=== PATIENT | female | born 1965 | race Caucasian/White ===

== ENCOUNTER → 2017-10-14 | Outpatient (CLI) | payer BC ==
--- NOTE | 2017-10-14 16:38 | XR ---
Right shoulder HISTORY: Chronic right shoulder pain 3 views of the right shoulder Bone mineralization, joint spaces and alignment are maintained. No fracture or dislocation. Right pedrito g apex as visualized is normal. Distal acromion is downturned. IMPRESSION: Correlate for possible impingement, shoulder MRI may be of benefit.
== END | disposition home or self-care (01) ==
LOC: RADXRYALE 14:11
PROVIDERS: ATTEND Physician Assistant Medical
DX: M25.511 Pain in right shoulder (principal)

== ENCOUNTER → 2018-01-06 | Outpatient (CLI) | payer BC ==
--- NOTE | 2018-01-06 09:40 | US ---
EXAMINATION TYPE: US pelvis complete transvag DATE OF EXAM: 01/06/2018 COMPARISON: NONE CLINICAL HISTORY: N92.0 Menorrhagia. Right side pain. Patient said she skipped her menses in November w hich is unusual for her. TECHNIQUE: Transvaginal (TV) and Transabdominal (TA) . Transabdominal sonographic images of the pel vis were acquired. Transvaginal sonographic images were medically necessary to better assess the fol lowing anatomy: Ovaries and endometrium Date of LMP: 11/14/2017, EXAM MEASUREMENTS: Uterus: 8.4 x 4.7 x 3.7 cm Endometrial Stripe: 0.5 cm Right Ovary: 1.9 x 1.2 x 1.4 cm 1. Uterus: Anteverted 2. Endometrium: wnl as visualized 3. Right Ovary: appears small in size 4. Left Ovary: Obscured by overlying bowel gas 5. Bilateral Adnexa: wnl 6. Posterior cul-de-sac: wnl Cervix- nabothian cyst IMPRESSION: Uterus, endometrial thickness, and right ovary are grossly unremarkable other than slight small size of the right ovary. Left ovary is nonvisualized due to overlying bowel gas.
== END | disposition home or self-care (01) ==
LOC: RADUSWWP 08:17
PROVIDERS: ATTEND Obstetrics & Gynecology
DX: N92.0 Excessive and frequent menstruation with regular cycle (principal)
CPT/HCPCS: 76830; 76856

== ENCOUNTER → 2018-06-18 | Outpatient (CLI) | payer OTHER ==
--- NOTE | 2018-06-18 11:53 | MM ---
Reason for exam: screening (asymptomatic). Last mammogram was performed 4 years and 6 months ago. Physical Findings: A clinical breast exam by your physician is recommended on an annual basis and results should be correlated with mammographic findings. MG Screening Mammo w CAD Bilateral CC and MLO view(s) were taken. Prior study comparison: December 26, 2013, bilateral digital screening mammo w/CAD. There are scattered fibroglandular densities. Stable benign calcifications. There is no discrete abnormality. No significant changes when compared with prior studies. ASSESSMENT: Benign, BI-RAD 2 RECOMMENDATION: Routine screening mammogram of both breasts in 1 year.
== END | disposition home or self-care (01) ==
LOC: RADMAMWWP 07:02
PROVIDERS: ATTEND Family Medicine
DX: Z12.31 Encounter for screening mammogram for malignant neoplasm of breast (principal)
CPT/HCPCS: 77067

== ENCOUNTER → 2020-08-09 | Outpatient (CLI) | payer OTHER ==
--- NOTE | 2020-08-09 10:25 | XR ---
EXAMINATION TYPE: XR knee complete LT DATE OF EXAM: 08/09/2020 COMPARISON: NONE HISTORY: Pain TECHNIQUE: Three views are submitted. FINDINGS: Mild to moderate narrowing of the medial compartment of the knee joint. Hypertrophic spurring involvi ng the upper margin of the patella.. Osseous structures are intact. No acute fracture seen. IMPRESSION: 1. Arthropathy
== END | disposition home or self-care (01) ==
LOC: RADXRMAIN 08:00
PROVIDERS: ATTEND Family Medicine
DX: M12.862 Other specific arthropathies, not elsewhere classified, left knee (principal)

== ENCOUNTER → 2021-08-20 | Outpatient (CLI) | payer OTHER ==
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
== END | disposition home or self-care (01) ==
LOC: RADXRMAIN 09:58
PROVIDERS: ATTEND Emergency Medicine
DX: S40.011A Contusion of right shoulder, initial encounter (principal); S40.021A Contusion of right upper arm, initial encounter; X58.XXXA Exposure to other specified factors, initial encounter

== ENCOUNTER → 2021-09-27 | Outpatient (CLI) | payer OTHER ==
--- NOTE | 2021-09-28 04:06 | MR ---
EXAMINATION TYPE: MR shoulder RT wo con DATE OF EXAM: 09/27/2021 COMPARISON: None HISTORY: Right shoulder pain/injury. Multiplanar multiecho imaging of the right shoulder without contrast. There is a large shoulder joint effusion. There is subdeltoid effusion. There is spurring at the AC j oint with subacromial impingement. There is severe subacromial joint space narrowing. There is retrac tion of the supraspinatus tendon. There is large defect over the superior aspect of the humeral head. Subscapularis tendon shows some mild thickening. Biceps tendon is intact. The glenoid cleve appear in tact. There is no evidence of bony destructive process. There is no evidence for fracture. IMPRESSION: Large rotator cuff tear with retraction of the supraspinatus tendon. Moderate-sized shoulder joint effusion and subdeltoid effusion. Severe subacromial joint space narrow ing and impingement.
== END | disposition home or self-care (01) ==
LOC: RADMRIMAIN 20:44
PROVIDERS: ATTEND Orthopaedic Surgery
DX: M25.411 Effusion, right shoulder (principal)

== ENCOUNTER 2021-11-01 06:01 | Day surgery (SDC) | payer OTHER ==
[2021-10-30 15:08] VITALS: BMI 29.5
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
[2021-11-01] MEDS ORDERED: DEXAMETHASONE SOD PHOSPHATE 4 MG/ML 1 ML VIAL IV ONE (06:11)
[2021-11-01] MEDS ORDERED: ONDANSETRON 4 MG/2 ML VIAL IVP ONE (06:11)
[2021-11-01] MEDS ORDERED: MIDAZOLAM 2 MG/2 ML VIAL IV PRN (06:11)
[2021-11-01] MEDS ORDERED: SCOPOLAMINE 1.5MG/72HR PATCH TRANSDERM ONE (06:11)
[2021-11-01] MEDS ORDERED: LACTATED RINGERS 1,000 ML IV SCH (06:11)
[2021-11-01] MEDS ORDERED: HYDROmorphone 0.5 MG/0.5 ML SYRINGE IVP PRN (07:00)
[2021-11-01] MEDS ORDERED: fentaNYL (PF) 50 MCG/ML 2 ML AMP IVP ONE ×2 (07:17)
[2021-11-01] MEDS ORDERED: MIDAZOLAM 2 MG/2 ML VIAL IVP ONE (07:17)
[2021-11-01] MEDS ORDERED: PHENYLEPHRINE-0.9% NACL SYG 1,000 MCG/10 ML SYRINGE ONE (07:44)
[2021-11-01] MEDS ORDERED: PROPOFOL 10 MG/ML 20 ML VIAL IV ONE (07:44)
[2021-11-01] MEDS ORDERED: LIDOCAINE 1% INJ 10MG/ML (20 ML MDV) ONE (07:44)
[2021-11-01] MEDS ORDERED: ROPIVACAINE 5 MG/ML 30 ML VIAL ONE (07:44)
[2021-11-01] MEDS ORDERED: MIDAZOLAM 2 MG/2 ML VIAL ONE (07:44)
[2021-11-01] MEDS ORDERED: fentaNYL (PF) 50 MCG/ML 2 ML AMP ONE (07:44)
[2021-11-01] MEDS ORDERED: SUCCINYLCHOLINE CHLORIDE 100 MG/5 ML SYR IV ONE (07:44)
[2021-11-01] MEDS ORDERED: ePHEDrine 50 MG/ML 1 ML VIAL ONE (07:44)
[2021-11-01] MEDS ORDERED: LACTATED RINGERS 1,000 ML IV ONE (08:38)
--- NOTE | 2021-11-01 08:39 | P.ANPRN ---
Procedure Note - Anesthesia - Nerve Block Performed Right Interscalene Time Out Performed: Yes (07:16) Date of Procedure: 11/01/21 Procedure Start Time: Procedure Stop Time: Location of Patient: PreOp Indication: Acute Post-Operative Pain, Requested by Surgeon (Dr Campoverde) Sedation Type: Sedate with meaningful contact maintained Preparation: Sterile Prep Position: Supine Catheter: None Needle Types: Pajunk Needle Gauge: Other (see comment) (22g) Ultrasound used to visualize needle placement: Yes Ultrasound used to observe medication spread: Yes Injectate: 0.5% Ropivacaine (see comment for volume) (20cc) Blood Aspirated: No Pain Paresthesia on Injection Noted: No Resistance on Injection: Normal Image Stored and Saved: Yes Events: Uneventful and Well Tolerated
--- NOTE | 2021-11-01 09:12 | P.OP ---
Date of Procedure: 11/01/21 Preoperative Diagnosis: Symptomatic right rotator cuff tear Postoperative Diagnosis: 5 cm retracted rotator cuff tear/high-grade partial-thickness tear intra- articular portion long head of the biceps Procedure(s) Performed: Right shoulder arthroscopic subacromial decompression/rotator cuff repair/biceps tenotomy Implants: Arthrex 4.75 mm swivel lock anchor 2, 5.5 mm swivel lock anchor 2 Anesthesia: HEYDIA, tyrell Surgeon: Anjel Campoverde Outbound Supervisor #1: Cullen Pederson Estimated Blood Loss (ml): 10 Pathology: none sent Condition: stable Disposition: PACU Indications for Procedure: The patient's a 56-year-old female presents with right shoulder pain after an injury at work. Upon evaluation she is noted have symptomatic acute rotator cuff tear. A discussion of the risks and benefits of operative intervention versus conservative measures was made with patient. She opted to proceed. Operative risks to include infection, neurovascular injury, development of blood clots, possible tendon rerupture, possible postoperative stiffness and need for subsequent procedures was discussed. Informed consent was obtained. Operative Findings: As below Description of Procedure: The patient was brought to the operating room, and after induction of general anesthesia was placed in a beachchair position. A preoperative interscalene block was placed for postoperative analgesia. I examined the right shoulder. There was no gross block to passive motion or gross glenohumeral instability. The right upper extremity was prepped and draped in normal fashion. The bony outlines the acromion, distal clavicle, and coracoid process were outlined with a skin marker. The glenohumeral joint was inflated with 50 mL of saline utilizing a spinal needle from posterior approach. A posterior portal was made through a 5 mm skin incision 1 cm medial and inferior to the posterior lateral border time. A blunt trocar was used to easily into the joint. Diagnostic arthroscopy was performed. An anterior portal was made just lateral to the coracoid process entering the joint above the subscapularis tendon. The subscapularis tendon appeared to be intact. Anterior labrum was intact. The inferior recess was inspected. The posterior labrum was intact. There was a high-grade partial-thickness tear of the long head of the biceps involving interarticular portion. I elected to proceed with release at this point. This was released from the superior labrum with electrocautery and was allowed to retract to the bicipital groove. On inspection the rotator cuff, a large 5 cm tear was noted involving the supraspinatus and infraspinatus with retraction. The arthroscope was placed into the subacromial space. A lateral portal was made 2 centimeters inferior to the anterior lateral border of the acromion. The rotator cuff was then mobilized with a traction suture. This was then easily brought back to the greater tuberosity. The soft tissue on the undersurface of the acromion was debrided with a motorized shaver and electrocautery clearly defining the anterior medial and lateral borders as well as the distal clavicle. An anterior inferior acromioplasty was performed with a motorized ehsan starting anterolateral, then extending this posteriorly, then extending this medially. I converted to a flat acromion and this was verified in the posterior and lateral viewing portals. The greater tuberosity was lightly decorticating with a shaver down to a bleeding bony surface. An accessory superior lateral portal was made just off the lateral edge of the acromion for anchor placement. 2 anchors were then placed just off the articular surface with the appropriate starting awl. 4.75 mm anchors preloaded with #2 fiber tape were placed. Good purchase was obtained. These fiber tapes were then passed the rotator cuff with a scorpion suture passer. An additional fiber link was placed anteriorly. A lateral row was created crisscrossing these tapes. 5.5 mm swivel lock anchors x2 were placed laterally. Good purchase was obtained. Final arthroscopic view showed adequate compression at the footprint. The arthroscope was then removed. The portals were closed with simple 3-0 nylon sutures. A sterile dressing was applied in addition to an abductor brace. The patient was then awoken from general anesthesia and transferred to recovery room in good condition. Blood loss was estimated at 10 mL. No complications were incurred. Sponge and needle counts were correct in the case. Gio MOY assisted and the major components of the case to include arm positioning, anchor placement, and rotator cuff repair.
[2021-11-01 09:21] VITALS: TEMP 97
[2021-11-01 09:49] VITALS: RESP 18
[2021-11-01] MEDS ORDERED: HYDROcodone/APAP 7.5-325MG 1 EACH TAB ONE (10:09)
[2021-11-01] MEDS ORDERED: HYDROcodone/APAP 7.5-325MG 1 EACH TAB PO ONE (10:16)
[2021-11-01 10:29] VITALS: BP 121/78; PULSE 99
== END 2021-11-01 11:10 | disposition home or self-care (01) ==
LOC: OR 06:01
PROVIDERS: ATTEND Orthopaedic Surgery
DX: M75.101 Unspecified rotator cuff tear or rupture of right shoulder, not specified as traumatic (principal)
CPT/HCPCS: 29822; 64415; 76942; C1713 ×3; J2250; J1100; J0690; J2405; J2001; J3010; J2795; J2370; J0330; J2704; J1170

== ENCOUNTER → 2022-03-26 | Outpatient (CLI) | payer OTHER ==
--- NOTE | 2022-03-27 03:56 | MR ---
EXAMINATION TYPE: MR shoulder RT wo con DATE OF EXAM: 03/26/2022 COMPARISON: 09/27/2021 HISTORY: Prior on synapse, s/p surgical repair 11/01/2021, continuing pain and limited ROM Multiplanar multiecho imaging of the right shoulder with no contrast. There are 3 screws in the humeral head apparently for rotator cuff repair. There is some thickening a nd increased signal in the supraspinatus tendon near the attachment on the greater tuberosity of the humerus. No retraction. The biceps tendon is intact. Subscapularis tendon is intact. The glenoid labr a appear intact. The infraspinatus tendon is intact. There is mild spurring at the AC joint and subacromial impingement on the supraspinatus tendon. There is increased fluid signal at the AC joint. The humeral head is intact. Scapula is intact. IMPRESSION: There is rotator cuff repair surgery. There is some thickening and increased signal in the supraspina tus tendon near the attachment on the greater tuberosity and consistent with multiple full-thickness tears and tendinitis. No retraction. There is moderate subacromial impingement due to spurring at the AC joint. Impingement increased compared to preoperative exam. Impingement increased due to restorat ion of the supraspinatus tendon in the subacromial joint space. Mild shoulder joint effusion.
== END | disposition home or self-care (01) ==
LOC: RADMRIMAIN 10:58
PROVIDERS: ATTEND Orthopaedic Surgery
DX: M25.511 Pain in right shoulder (principal)

== ENCOUNTER 2022-05-20 08:51 | Day surgery (SDC) | payer OTHER ==
[2022-05-16 16:02] VITALS: BMI 31.1
--- NOTE | 2022-05-19 08:58 | P.HPOR ---
History of Present Illness H&P Date: 05/19/22 Chief Complaint: Right shoulder pain and stiffness The patient is a 57-year-old ulhqv-mhpw-kedydysk female who presents after undergoing right shoulder arthroscopic rotator cuff repair in October 2021 with persistent pain and stiffness. She's tried rehabilitation and other co nservative modalities. Review of Systems As per HPI Past Medical History Past Medical History: No Reported History Additional Past Medical History / Comment(s): RT SHOULDER INJURY History of Any Multi-Drug Resistant Organisms: None Reported Past Surgical History: Orthopedic Surgery, Tubal Ligation Additional Past Surgical History / Comment(s): RIGHT SHOULDER SURG. Past Anesthesia/Blood Transfusion Reactions: No Reported Reaction Past Psychological History: No Psychological Hx Reported Smoking Status: Never smoker Past Alcohol Use History: Occasional Past Drug Use History: None Reported - Past Family History Mother Family Medical History: Unable to Obtain Additional Family Medical History / Comment(s): PT ADOPTED Medications and Allergies Home Medications Medication Instructions Recorded Confirmed Type No Known Home Medications 05/16/22 05/16/22 History Allergies Allergy/AdvReac Type Severity Reaction Status Date / Time No Known Allergies Allergy Verified 05/16/22 15:58 Physical Examination - Shoulder right Appearance: previous incision (Healed portals) Tenderness with palpation: anterior Pain: with forward flexion ROM: forward flexion: 120 degrees ROM: internal rotation: mid lumbar ROM: external rotation: 50 degrees Strength: abduction: 5/5 Strength: forward flexion: 5/5 Tests: internal impingement tests: positive Results The patient is a well-developed well-nourished female proximal a 5 foot 3, 160 pounds of endomorphic habitus. HEENT exam is nonfocal. Neck is supple. Her distal neurovascular appears intact in the right upper shoulder. - Diagnostic results Shoulder MRI: image reviewed (Right shoulder MRI 03/26/2022 shows increased signal involving the supraspinatus attachment. No definite full-thickness rotator cuff tear is noted.) Assessment and Plan Assessment: Status post right shoulder arthroscopic subacromial decompression/rotator cuff repair Right shoulder adhesive capsulitis Plan: I talked to the patient length regarding her condition and treatment options. This point she remains stiff and painful despite adequate rehabilitation postoperatively. After thorough discussion she has proceed with manipulation under anesthesia. Likely we will perform that as an outpatient procedure. Risks and benefits were discussed at length in layman's terms. Time with Patient: Less than 30
[~2022-05-20 08:51] MED LIST: LACTATED RINGERS 1,000 ML IV SCH
[2022-05-20 09:17] VITALS: TEMP 97.8
[2022-05-20] MEDS ORDERED: LIDOCAINE 1% (10MG/ML) FOR IV START INTRADERMA ONE (09:25)
[2022-05-20] MEDS ORDERED: ONDANSETRON 4 MG/2 ML VIAL ONE (09:34)
[2022-05-20] MEDS ORDERED: ONDANSETRON 4 MG/2 ML VIAL IVP ONE (09:37)
[2022-05-20] MEDS ORDERED: MIDAZOLAM 2 MG/2 ML VIAL ONE (10:21)
[2022-05-20] MEDS ORDERED: PROPOFOL 10 MG/ML 20 ML VIAL IV ONE (10:21)
[2022-05-20] MEDS ORDERED: LIDOCAINE 2% INJ 20 MG/ML (2 ML VIAL) ONE (10:21)
[2022-05-20] MEDS ORDERED: fentaNYL (PF) 50 MCG/ML 2 ML AMP ONE (10:21)
--- NOTE | 2022-05-20 10:30 | P.OP ---
Date of Procedure: 05/20/22 Preoperative Diagnosis: Right shoulder adhesive capsulitis Postoperative Diagnosis: Same Procedure(s) Performed: Manipulation under anesthesia right shoulder Anesthesia: MAC Surgeon: Anjel Campoverde Estimated Blood Loss (ml): 0 Pathology: none sent Condition: stable Disposition: PACU Indications for Procedure: The patient is a 57-year-old female who previously underwent right shoulder arthroscopic rotator cuff repair who presents with persistent stiffness and pain despite adequate rehabilitation. A discussion of the risks and benefits of manipulation under anesthesia was made with patient. She opted to proceed. Specific risks of this procedure to include fracture, tendon rupture, possible recurrence of stiffness and need for subsequent procedures was discussed. Informed consent was obtained. Operative Findings: As below Description of Procedure: Patient was brought to recovery room, and after induction of IV sedation I gently manipulated the right shoulder first with the arm at side obtaining full external rotation. Moderate adhesions were encountered. I then obtained full forward elevation. Again moderate adhesions were encountered. I felt there was adequate release this point. The patient was then monitored until fully awake. No complications were incurred. There was no blood loss.
[2022-05-20] MEDS ORDERED: HYDROmorphone 0.5 MG/0.5 ML SYRINGE IVP ONE (10:46)
[2022-05-20 11:14] VITALS: RESP 16
[2022-05-20] MEDS ORDERED: HYDROcodone/APAP 5-325MG 1 EACH TAB ONE (11:39)
[2022-05-20] MEDS ORDERED: HYDROcodone/APAP 5-325MG 1 EACH TAB PO ONE (11:40)
[2022-05-20 11:49] VITALS: BP 145/79; PULSE 66
== END 2022-05-20 12:10 | disposition home or self-care (01) ==
LOC: OR 08:51
PROVIDERS: ATTEND Orthopaedic Surgery
DX: M75.01 Adhesive capsulitis of right shoulder (principal); Z98.51 Tubal ligation status; Z47.31 Aftercare following explantation of shoulder joint prosthesis; Z98.890 Other specified postprocedural states; Z86.59 Personal history of other mental and behavioral disorders
CPT/HCPCS: 23700; J2250; J2405; J3010; J2704; J1170; J2001

== ENCOUNTER → 2023-01-28 | Outpatient (CLI) | payer OTHER ==
--- NOTE | 2023-01-28 10:36 | CT ---
EXAMINATION TYPE: CT pelvis wo con DATE OF EXAM: 01/28/2023 COMPARISON: None. HISTORY: Symphysis pubis pain, groin pain CT DLP: 472.1 mGycm Automated exposure control for dose reduction was used. FINDINGS: There is some narrowing with sclerosis and subchondral cystic change at the pubic symphysis, latter f indings are more prominent on the right. Mild axial joint space loss and acetabular spurring of both hips is fairly symmetric in appearance. S acroiliac joints are symmetric and within normal limits. There is transitional-type vertebra at the l umbosacral junction. There is mild to moderate disc space narrowing L4-L5 and L5-S1 levels. Minimal g rade 1 anterolisthesis of L5 on L6. Sigmoid colonic diverticula. No CT evidence for acute diverticulitis. Normal-appearing appendix is se en. Anteverted uterus is noted. Scattered small pelvic phleboliths. No free fluid in pelvis. No groin hernia or adenopathy seen. Muscle bulk bilateral thigh symmetric and within normal limits. 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
--- NOTE | 2023-01-29 10:04 | MM ---
Reason for Exam: Screening (asymptomatic). Last mammogram was performed 4 year(s) and 7 month(s) ago. Patient History: Menarche at age 17. First Full-Term at age 23. Postmenopausal. Patient has history of breast feeding. Patient used Hormonal Contraceptives for 3 years. Risk Values: Karina 5 year model risk: 1.0%. NCI Lifetime model risk: 6.7%. Prior Study Comparison: 12/26/2013 Bilateral Screening Mammogram, [facility]. 06/18/2018 Bilateral Screening Mammogram, [facility]. Tissue Density: There are scattered fibroglandular densities. Findings: Analyzed By CAD. Benign oil cyst calcifications on the right. There is no suspicious group of microcalcifications or new suspicious mass in either breast. Overall Assessment: Benign, BI-RAD 2 Management: Screening Mammogram of both breasts in 1 year. . Patient should continue monthly self-breast exams. A clinical breast exam by your physician is recommended on an annual basis. This exam should not preclude additional follow-up of suspicious palpable abnormalities. Note on Karina scores and lifetime risk: 1. A Karina score greater than 3% is considered moderate risk. If this is the case, consider specialist referral to assess eligibility for a risk reducing agent. 2. If overall lifetime risk for the development of breast cancer is 20% or higher, the patient may qualify for future screening with alternating mammogram and breast MRI. Electronically signed and approved by: Julia Esparza M.D. Radiologist
== END | disposition home or self-care (01) ==
LOC: RADMAMWWP 08:23
PROVIDERS: ATTEND Family Medicine
DX: Z12.31 Encounter for screening mammogram for malignant neoplasm of breast (principal); S33.4XXS Traumatic rupture of symphysis pubis, sequela; M16.11 Unilateral primary osteoarthritis, right hip; M48.07 Spinal stenosis, lumbosacral region; X58.XXXS Exposure to other specified factors, sequela; Z78.0 Asymptomatic menopausal state
CPT/HCPCS: 72192; 77067

== ENCOUNTER 2023-02-02 05:51 | Emergency (ER) | payer OTHER ==
[2023-02-02 06:00] VITALS: RESP 18; TEMP 97.7
[2023-02-02] MEDS ORDERED: SODIUM CHLORIDE 0.9% 1,000 ML IV STA (06:49)
--- NOTE | 2023-02-02 06:54 | ED ---
Extremity Problem HPI - General Chief complaint: Extremity Problem,Nontraumatic Stated complaint: Tingling in legs, Muscle Cramps in legs and back Time Seen by Provider: 02/02/23 06:35 Source: patient, RN notes reviewed Mode of arrival: ambulatory Limitations: no limitations - History of Present Illness Initial comments: This is a 57-year-old female who presents to the emergency department for cramping and spasms in the bilateral lower extremities. States that this started 3 weeks ago after getting a cortisone injection in the left knee. Prior to 3 weeks ago, she had never had problems like this. She feels like it is getting worse, especially within the last week. She has started to notice visible movement in her calves, worse on the left side. States that she has tried to remain well-hydrated. She is going on vacation tomorrow and wants to make sure nothing serious is going on. Denies any chest pain or shortness of breath. Denies any fevers, chills, sore throat, cough, dyspnea, chest pain, palpitations, abdominal pain, nausea, vomiting, diarrhea, back pain, or headaches. MD Complaint: extremity pain Location: bilateral lower extremity History of Same: No - Related Data Previous Rx's Medication Instructions Recorded HYDROcodone/APAP 5-325MG [[place] 1 tab PO Q6HR PRN #21 tab 05/20/22 5-325] methylPREDNISolone Dose Pack 4 mg PO DIRECTED #21 tab 05/20/22 [Medrol Dose Pack] RX: diazePAM [Valium] 5 mg PO TID PRN 3 Days #9 tab 02/02/23 Allergies Allergy/AdvReac Type Severity Reaction Status Date / Time No Known Allergies Allergy Verified 02/02/23 05:55 Review of Systems ROS Statement: Those systems with pertinent positive or pertinent negative responses have been documented in the HPI. ROS Other: All systems not noted in ROS Statement are negative. Past Medical History Past Medical History: No Reported History Additional Past Medical History / Comment(s): RT SHOULDER INJURY History of Any Multi-Drug Resistant Organisms: None Reported Past Surgical History: Orthopedic Surgery, Tubal Ligation Additional Past Surgical History / Comment(s): RIGHT SHOULDER SURG. Past Anesthesia/Blood Transfusion Reactions: No Reported Reaction Past Psychological History: No Psychological Hx Reported Smoking Status: Never smoker Past Alcohol Use History: Occasional Past Drug Use History: None Reported - Past Family History Mother Family Medical History: Unable to Obtain Additional Family Medical History / Comment(s): PT ADOPTED General Exam Limitations: no limitations General appearance: alert, in no apparent distress Head exam: Present: atraumatic, normocephalic, normal inspection Respiratory exam: Present: normal lung sounds bilaterally. Absent: respiratory distress, wheezes, rales, rhonchi, stridor Cardiovascular Exam: Present: regular rate, normal rhythm, normal heart sounds. Absent: systolic murmur, diastolic murmur, rubs, gallop, clicks Extremities exam: Present: other (Visible muscle fasiculations in the calves bilaterally. 2+DP and TP pulses. Capillary refill <1 second.). Absent: calf tenderness Neurological exam: Present: alert, oriented X3, CN II-XII intact Psychiatric exam: Present: normal affect, normal mood Skin exam: Present: warm, dry, intact, normal color. Absent: rash Course Vital Signs 02/02/23 02/02/23 02/02/23 05:55 06:50 09:08 Temperature 97.7 F Pulse Rate 125 H 91 80 Respiratory 18 18 18 Rate Blood Pressure 167/97 139/89 131/72 O2 Sat by Pulse 100 97 97 Oximetry Medical Decision Making - Medical Decision Making This is a 57-year-old female who presents to the emergency department for cramping in the bilateral lower extremities. Was pt. sent in by a medical professional or institution? @ -No Did you speak to anyone other than the patient for history? @ -No Did you review nursing and triage notes? @ -Yes, and I agree, it is accurate with regards to the patient's symptoms. Were old charts reviewed? @ -No Differential Diagnosis? @ -Differential Muscle Cramps/Spasms: Hypocalcemia, hypomagnesemia, DVT, neuropathy, dehydration, this is not meant to be an all-inclusive list. EKG interpreted by me (3pts min.)? @ -Not obtained X-rays interpreted by me (1pt min.)? @ -Not obtained CT interpreted by me (1pt min.)? @ -Not obtained U/S interpreted by me (1pt. min.)? @ -Not obtained What testing was considered but not performed? (CT, X-rays, U/S, labs)? Why? @ -None What meds were considered but not given? Why? @ -None Did you discuss the management of the patient with other professionals? @ -No Did you reconcile home meds? @ -No Was smoking cessation discussed for >3mins.? @ -No Was critical care preformed (if so, how long)? @ -No Were there social determinants of health that impacted care today? How? (Homel essness, low income, unemployed, alcoholism, drug addiction, transportation, low edu. Level, literacy, decrease access to med. care, halfway, rehab)? @ -No Was there de-escalation of care discussed even if they declined? (Discuss DNR or withdrawal of care, Hospice)? @ -No What co-morbidities impacted this encounter? (DM, HTN, Smoking, COPD, CAD, Cancer, CVA, Hep., AIDS, mental health diagnosis, sleep apnea, morbid obesity)? @ -None Was patient admitted / discharged? @ -Discharged. Patient had visible muscle fasiculations on examination. There was no erythema, swelling, or tenderness to suggest a vascular problem such as DVT. Lab work obtained and found to be nonactionable. Patient given IV fluids and valium for symptomatic management. She did have some improvement, however the spasms and cramping continued. Advised that there is not a clear cause for her symptoms. I offered to call her primary care provider, however she declined and said that she'll follow up with him in the office as scheduled today at 1 PM. Prescription for Valium provided with dosing instructions reviewed to further treat the muscle cramps/spasms. She was advised that this may be sedating and she should avoid driving or operating machinery when taking this. Undiagnosed new problem with uncertain prognosis? @ -None Drug Therapy requiring intensive monitoring for toxicity (Heparin, Nitro, Insulin, Cardizem)? @ -None Were any procedures done? @ -None Diagnosis/symptom? @ -Fasiculations of muscles Acute, or Chronic, or Acute on Chronic? @ -Acute Uncomplicated (without systemic symptoms) or Complicated (systemic symptoms)? @ -Uncomplicated Side effects of treatment? @ -None Exacerbation, Progression, or Severe Exacerbation] @ -Not applicable Poses a threat to life or bodily function? @ -No Return precautions reviewed in depth, the patient is instructed to return to the emergency department with any new, worsening, or concerning symptoms. Patient verbalized understanding. This case was discussed in detail with the attending ED physician, Dr. Ramey. Presentation, findings, and treatment plan discussed in detail as well. - Lab Data Result diagrams: 02/02/23 07:00 02/02/23 07:00 Lab Results 02/02/23 02/02/23 02/02/23 Range/Units 07:00 07:00 07:00 WBC 9.1 (3.8-10.6) k/uL RBC 4.52 (3.80-5.40) m/uL Hgb 14.3 (11.4-16.0) gm/dL Hct 42.0 (34.0-46.0) % MCV 92.9 (80.0-100.0) fL MCH 31.6 (25.0-35.0) pg MCHC 34.0 (31.0-37.0) g/dL RDW 12.4 (11.5-15.5) % Plt Count 287 (150-450) k/uL MPV 7.2 Neutrophils % 76 % Lymphocytes % 16 % Monocytes % 5 % Eosinophils % 2 % Basophils % 0 % Neutrophils # 6.9 (1.3-7.7) k/uL Lymphocytes # 1.4 (1.0-4.8) k/uL Monocytes # 0.4 (0-1.0) k/uL Eosinophils # 0.1 (0-0.7) k/uL Basophils # 0.0 (0-0.2) k/uL Sodium 141 (137-145) mmol/L Potassium 4.1 (3.5-5.1) mmol/L Chloride 106 (98-107) mmol/L Carbon Dioxide 21 L (22-30) mmol/L Anion Gap 14 mmol/L BUN 14 (7-17) mg/dL Creatinine 0.57 (0.52-1.04) mg/dL Est GFR (CKD-EPI)AfAm >90 (>60 ml/min/1.73 sqM) Est GFR (CKD-EPI)NonAf >90 (>60 ml/min/1.73 sqM) Glucose 130 H (74-99) mg/dL Calcium 9.8 (8.4-10.2) mg/dL Phosphorus 3.0 (2.5-4.5) mg/dL Magnesium 2.1 (1.6-2.3) mg/dL Total Bilirubin 0.4 (0.2-1.3) mg/dL AST 32 (14-36) U/L ALT 25 (4-34) U/L Alkaline Phosphatase 86 (38-126) U/L Creatine Kinase 219 H (30-135) U/L Total Protein 7.8 (6.3-8.2) g/dL Albumin 4.8 (3.5-5.0) g/dL Disposition Clinical Impression: Fasciculations of muscle Disposition: HOME SELF-CARE Instructions (If sedation given, give patient instructions): Leg Cramps (ED), Muscle Cramp (ED) Additional Instructions: Return to the emergency department with any new, worsening, or concerning symptoms. You can take the Valium as half a tablet to 2 tablets at a time, every 8 hours as needed for symptoms. Follow-up with Dr. Bermeo regarding your symptoms and discuss additional testing if indicated. Prescriptions: RX: diazePAM [Valium] 5 mg PO TID PRN 3 Days #9 tab PRN Reason: Spasms Is patient prescribed a controlled substance at d/c from ED?: Yes When asked, does pt state using other controlled substances?: No If prescribed controlled substance>3 days was MAPS reviewed?: Prescribed <3 Days Referrals: Ketan Bermeo MD [Primary Care Provider] - 1-2 days
[2023-02-02 07:17] LABS: Basophils % (A) 0 %; Eosinophils # (A) 0.1 k/uL (0-0.7); Eosinophils % (A) 2 %; HGB 14.3 gm/dL (11.4-16.0); Lymphocytes # (A) 1.4 k/uL (1.0-4.8); Lymphocytes % (A) 16 %; MCH 31.6 pg (25.0-35.0); MCV 92.9 fL (80.0-100.0); Mean Platelet Volume 7.2; Monocytes # (A) 0.4 k/uL (0-1.0); Monocytes % (A) 5 %; Neutrophils # (A) 6.9 k/uL (1.3-7.7); Neutrophils % (A) 76 %; Platelet Count 287 k/uL (150-450); RBC 4.52 m/uL (3.80-5.40); RDW 12.4 % (11.5-15.5); WBC 9.1 k/uL (3.8-10.6)
[2023-02-02 07:30] LABS: ALT 25 U/L (4-34); AST 32 U/L (14-36); African American GFR (CKD) >90 (>60 ml/min/1.73 sqM); Albumin 4.8 g/dL (3.5-5.0); Alkaline Phosphatase 86 U/L (38-126); Anion Gap 14 mmol/L; Blood Urea Nitrogen 14 mg/dL (7-17); Calcium 9.8 mg/dL (8.4-10.2); Carbon Dioxide 21 mmol/L (22-30); Chloride 106 mmol/L (98-107); Glucose 130 mg/dL (74-99); Magnesium 2.1 mg/dL (1.6-2.3); Non-African American GFR(CKD) >90 (>60 ml/min/1.73 sqM); Potassium 4.1 mmol/L (3.5-5.1); Sodium 141 mmol/L (137-145); Total Bilirubin 0.4 mg/dL (0.2-1.3); Total Protein 7.8 g/dL (6.3-8.2)
[2023-02-02 09:12] VITALS: BP 131/72; PULSE 80
== END 2023-02-02 11:36 | disposition home or self-care (01) ==
LOC: EC 05:51
DX: R25.3 Fasciculation (principal)
CPT/HCPCS: 36415; 80053; 82550; 83735; 84100; 85025; 99284; 96374; 96361; J3360

== ENCOUNTER 2023-03-07 11:48 | Observation (INO) | payer OTHER ==
--- NOTE | 2023-03-07 12:43 | ED ---
General Adult HPI - General Chief complaint: Extremity Problem,Nontraumatic Stated complaint: Abnormal Labs, leg cramping Time Seen by Provider: 03/07/23 12:09 Source: patient Mode of arrival: ambulatory - History of Present Illness Initial comments: 58-year-old female presents to the emergency room ambulatory with complaints of bilateral lower extremity pain and muscle spasms worse at night. Patient states symptoms started after getting a cortisone injection in her left knee by her primary care doctor on January 13. She states that she did come to the emergency room on February 02 and was prescribed Valium. Did follow-up with her primary care doctor the next day who prescribed her gabapentin, and Valium along with an inhaler she states he told her she just wasn't getting enough oxygen. Patient then went to urgent care on February 18 and had labs drawn and found to have a posi tive YULI with a titer of 1.8. Patient does have an appointment with neurology and spine on March 30 but states that she cannot wait that long as the symptoms are worse and she is concerned for MS. States that she is not able to work due to the pain in her legs and wants to be admitted. -: week(s) (6) Location: left, right, lower extremity Severity scale (1-10): 4 Quality: constant Consistency: constant Treatments Prior to Arrival: other (Valium, gabapentin) - Related Data Home Medications Medication Instructions Recorded Confirmed Cyclobenzaprine HCl 10 mg PO TID PRN 03/07/23 03/07/23 Previous Rx's Medication Instructions Recorded diazePAM [Valium] 5 mg PO TID PRN 3 Days #9 tab 02/02/23 Allergies Allergy/AdvReac Type Severity Reaction Status Date / Time No Known Allergies Allergy Verified 03/07/23 13:14 Review of Systems ROS Statement: Those systems with pertinent positive or pertinent negative responses have been documented in the HPI. ROS Other: All systems not noted in ROS Statement are negative. Past Medical History Past Medical History: No Reported History Additional Past Medical History / Comment(s): RT SHOULDER INJURY History of Any Multi-Drug Resistant Organisms: None Reported Past Surgical History: Orthopedic Surgery, Tubal Ligation Additional Past Surgical History / Comment(s): RIGHT SHOULDER SURG. Past Anesthesia/Blood Transfusion Reactions: No Reported Reaction Past Psychological History: No Psychological Hx Reported Smoking Status: Never smoker Past Alcohol Use History: Occasional Past Drug Use History: None Reported - Past Family History Mother Family Medical History: Unable to Obtain Additional Family Medical History / Comment(s): PT ADOPTED General Exam General appearance: alert, in no apparent distress Head exam: Present: atraumatic Eye exam: Absent: scleral icterus, conjunctival injection, periorbital swelling ENT exam: Present: mucous membranes moist Neck exam: Present: full ROM. Absent: meningismus Respiratory exam: Absent: respiratory distress, accessory muscle use Cardiovascular Exam: Present: tachycardia GI/Abdominal exam: Present: soft Extremities exam: Present: full ROM, normal capillary refill. Absent: pedal edema Back exam: Present: normal inspection. Absent: tenderness, CVA tenderness (R), CVA tenderness (L), paraspinal tenderness, vertebral tenderness, rash noted Neurological exam: Present: alert, oriented X3, CN II-XII intact, normal gait. Absent: motor sensory deficit Expanded Patient oriented to: Present: person, place, time Speech: Present: fluid speech Cranial nerves: EOM's Intact: Normal Motor strength exam: RUE: 5, LUE: 5, RLE: 5, LLE: 5 Eye Response: (4) open spontaneously Motor Response: (6) obeys commands Verbal Response: (5) oriented [place] Total: 15 Psychiatric exam: Present: normal affect, normal mood Skin exam: Present: warm, dry, normal color. Absent: cyanosis, diaphoretic, petechiae, pallor Course Vital Signs 03/07/23 03/07/23 11:54 12:20 Temperature 99.2 F Pulse Rate 122 H 120 H Respiratory 18 20 Rate Blood Pressure 163/93 137/89 O2 Sat by Pulse 99 97 Oximetry - Reevaluation(s) Reevaluation #1: 03/07/23 13:01 Spoke with patient's primary care Dr. Bermeo who recommended CT of the lumbar spine with labs including folic acid, B-12, TSH, CPK, lupus panel. Placed in observation with neurology consult. 03/07/23 13:02 Time: 12:58 Medical Decision Making - Medical Decision Making Was pt. sent in by a medical professional or institution (, PA, STEEL TESTER, urgent care, hospital, or senior living...) When possible be specific @ -No Did you speak to anyone other than the patient for history (EMS, parent, family, police, friend...)? What history was obtained from this source @ -No Did you review nursing and triage notes (agree or disagree)? Why? @ -I reviewed and agree with nursing and triage notes Were old charts reviewed (outside hosp., previous admission, EMS record, old EKG, old radiological studies, urgent care reports/EKG's, senior living records)? Report findings @ -yes ER records from 02/02/2023 along with labs Differential Diagnosis (chest pain, altered mental status, abdominal pain women, abdominal pain men, vaginal bleeding, weakness, fever, dyspnea, syncope, headache, dizziness, GI bleed, back pain, seizure, CVA, palpatations, mental health, musculoskeletal)? @ -Lumbar spine lesion, multiple sclerosis, rhabdomyolysis, dehydration, Lyme disease this is not an all inclusive list EKG interpreted by me (3pts min.). @ -n/a X-rays interpreted by me (1pt min.). @ -None done CT interpreted by me (1pt min.). @ -None done U/S interpreted by me (1pt. min.). @ -None done What testing was considered but not performed or refused? (CT, X-rays, U/S, labs)? Why? @ -None What meds were considered but not given or refused? Why? @ -None Did you discuss the management of the patient with other professionals (professionals i.e. , PA, STEEL TESTER, lab, RT, psych nurse, social service liaison, fittings tightener, teacher, special technical operations officer, case liner)? Give summary @ -I did speak with primary care Dr. Bermeo regarding admission and treatment plan Was smoking cessation discussed for >3mins.? @ -No Was critical care preformed (if so, how long)? @ -No Were there social determinants of health that impacted care today? How? (Homelessness, low income, unemployed, alcoholism, drug addiction, transportation, low edu. Level, literacy, decrease access to med. care, shelter, rehab)? @ -No Was there de-escalation of care discussed even if they declined (Discuss DNR or withdrawal of care, Hospice)? DNR status @ -No What co-morbidities impacted this encounter? (DM, HTN, Smoking, COPD, CAD, Cancer, CVA, ARF, Chemo, Hep., AIDS, mental health diagnosis, sleep apnea, morbid obesity)? @ -None Was patient admitted / discharged? Hospital course, mention meds given and route, prescriptions, significant lab abnormalities, going to OR and other pertinent info. @ -Admitted 58-year-old female presents to the emergency room ambulatory with complaints of bilateral lower extremity pain and muscle spasms worse at night. Patient states symptoms started after getting a cortisone injection in her left knee by her primary care doctor on January 13. She states that she did come to the emergency room on February 02 and was prescribed Valium. Did follow-up with her primary care doctor the next day who prescribed her gabapentin, and Valium along with an inhaler she states he told her she just wasn't getting enough oxygen. Patient then went to urgent care on February 18 and had labs drawn and found to have a positive YULI with a titer of 1.8. Patient does have an appointment with neurology and spine on March 30 but states that she cannot wait that long as the symptoms are worse and she is concerned for MS. States that she is not able to work due to the pain in her legs and wants to be admitted. Medical records from last visit 02/02/2023 whe she was seen for cramping and spasms in bilateral lower extremities at that time for 3 weeks. Provider's noted muscle fasciculations in the calves bilaterally, noted to be vascularly intact. No concern for DVT at that time. Lab work obtained and unremarkable. Patient was given Valium and fluids with some improvement. Stated following up with her primary care doctor Dr. Bermeo the next day at 1 PM. Prescription for Valium was provided 5 mg 3 times a day quantity 9. Labs from urgent care doctor on February 18 showing a positive, and a titer 1.8, TSH 1.7, sed rate 70. Patient states that she was prescribed Valium and gabapentin with no relief by her PCP. Wells score for DVT low risk. No swelling noted, no calf tenderness, no muscle fasciculations noted. No focal neurological deficits. Denies any fevers. No bowel or bladder incontinence. She is able to ambulate. No back pain. Denies any trauma. Patient states that she is adopted and does not know family medical history. She is tearful and very concerned that this might be MS. I did speak with Dr. Bermeo who recommended admission, labs and CT with neurology consult. Patient is agreeable to this plan of care. Heart rate reassessed after plan of care discussed and down to 98. I believe that her tachycardia is likely related to anxiety. Labs show a mild leukocytosis of 11.2. TSH 1.66, CRP less than 0.5, CK 109. Urinalysis shows trace ketones. CT lumbar spine shows L2-L3 small disc herniation with caudal migration resulting in mild central canal stenosis. Multilevel degenerative disc disease and facet arthropathy Case discussed with Dr. De La Torre Undiagnosed new problem with uncertain prognosis? @ -No Drug Therapy requiring intensive monitoring for toxicity (Heparin, Nitro, Insulin, Cardizem)? @ -No Were any procedures done? @ -No Diagnosis/symptom? @ -Bilateral lower extremity weakness Acute, or Chronic, or Acute on Chronic? @ -Acute Uncomplicated (without systemic symptoms) or Complicated (systemic symptoms)? @ -Complicated Side effects of treatment? @ -No Exacerbation, Progression, or Severe Exacerbation? @ -No Poses a threat to life or bodily function? How? (Chest pain, [place], NM, pneumonia, PE, COPD, DKA, ARF, appy, cholecystitis, CVA, Diverticulitis, Homicidal, Suicidal, threat to staff... and all critical care pts) @ -No - Lab Data Result diagrams: 03/07/23 13:38 Disposition Clinical Impression: Bilateral leg weakness Disposition: ADMITTED IP TO THIS HOSP Decision Date: 03/07/23 Decision Time: 13:02
[2023-03-07] MEDS ORDERED: LORazepam 2 MG/ML INJ IV STA (13:01)
[2023-03-07] MEDS ORDERED: NALOXONE 0.4 MG/ML 1 ML VIAL IV PRN (13:03)
--- NOTE | 2023-03-07 13:43 | CT ---
EXAMINATION TYPE: CT lumbar spine wo con CT DLP: 1082.6 mGycm, Automated exposure control for dose reduction was used. DATE OF EXAM: 03/07/2023 1:33 PM COMPARISON: CT pelvis 01/28/2023. CLINICAL INDICATION:Female, 58 years old with history of BLLE weakness; PHH, Cramping, pain and tingl ing of bilateral calves TECHNIQUE: Multiple axial images were obtained from the midportion of T11 through the sacroiliac stephen nts. Soft tissue and bone windows in coronal and sagittal planes were obtained and reviewed. FINDINGS: Alignment: There are 5 lumbar type vertebral bodies within normal alignment. Bone: No evidence of fracture is identified. Discs: Multilevel degenerative disc disease with disc space narrowing, endplate sclerosis, vacuum dis c disease, and anterior osteophytosis. T12-L1: No spinal canal or neural foraminal stenosis is identified. L1-L2: No spinal canal or neural foraminal stenosis is identified. L2-L3: Central disc protrusion with caudal migration of 3 mm. There is mild central canal stenosis. T he neural foramen are mildly narrowed bilaterally. L3-L4: Broad-based disc bulge with facet arthropathy resulting in mild central canal stenosis. Modera te right neural foraminal stenosis. The left neural foramen is patent. L4-L5: Broad-based disc bulge with bilateral facet arthropathy. There is mild central canal stenosis . Mild to moderate bilateral neural foraminal stenosis. L5-S1: No spinal canal stenosis. Bilateral facet arthropathy resulting in mild bilateral neural xochitl inal stenosis. Other: Thickening of the right adrenal gland. Benign lipid rich left adrenal adenoma measuring up to 1.6 cm. Colonic diverticulosis without evidence for acute diverticulitis. IMPRESSION: 1. L2-L3 small disc herniation with caudal migration resulting in mild central canal stenosis. 2. Multilevel degenerative disc disease and facet arthropathy as described above.
[2023-03-07 13:55] LABS: Basophils % (A) 0 %; Eosinophils # (A) 0.1 k/uL (0-0.7); Eosinophils % (A) 0 %; HCT 42.5 % (34.0-46.0); HGB 14.6 gm/dL (11.4-16.0); Lymphocytes # (A) 1.2 k/uL (1.0-4.8); Lymphocytes % (A) 11 %; MCH 32.3 pg (25.0-35.0); MCHC 34.2 g/dL (31.0-37.0); MCV 94.2 fL (80.0-100.0); Mean Platelet Volume 7.1; Monocytes # (A) 0.6 k/uL (0-1.0); Monocytes % (A) 5 %; Neutrophils # (A) 9.2 k/uL (1.3-7.7); Neutrophils % (A) 82 %; Platelet Count 272 k/uL (150-450); RBC 4.51 m/uL (3.80-5.40); RDW 12.6 % (11.5-15.5); WBC 11.2 k/uL (3.8-10.6)
[2023-03-07] MEDS ORDERED: DEXAMETHASONE SOD PHOSPHATE 10 MG/ML 1 ML VIAL IVP STA (14:05)
[2023-03-07 14:13] LABS: C Reactive Protein <0.5 mg/dL (<1.0); Creatine Kinase 109 U/L (30-135)
[2023-03-07 14:50] LABS: Erythrocyte Sedimentation Rate 11 mm/hr (0-20)
[2023-03-07 15:53] LABS: Appearance,Urine Clear (Clear); Bilirubin,Urine Negative (Negative); Blood,Urine Negative (Negative); Color,Urine Colorless; Glucose,Urine (UA) Negative (Negative); Ketones,Urine Trace (Negative); Leukocyte Esterase,Urine Negative (Negative); Nitrite,Urine Negative (Negative); PH, Urine 6.5 (5.0-8.0); Protein,Urine Negative (Negative); Specific Gravity,Urine 1.006 (1.001-1.035); Urobilinogen,Urine <2.0 mg/dL (<2.0)
[2023-03-07] MEDS: HEPARIN SODIUM,PORCINE/PF 5,000 UNIT/0.5 ML SYRINGE SQ SCH (17:04)
[2023-03-07] MEDS: traMADol 50 MG TAB PO PRN (17:42)
[2023-03-07] MEDS ORDERED: CYCLOBENZAPRINE 10 MG TAB PO PRN (18:17)
[2023-03-08] MEDS: FAMOTIDINE 20 MG TAB PO SCH ×2 (00:33→20:56)
[2023-03-08] MEDS: HEPARIN SODIUM,PORCINE/PF 5,000 UNIT/0.5 ML SYRINGE SQ SCH ×3 (00:33→15:34)
[2023-03-08] MEDS: traMADol 50 MG TAB PO PRN (00:35)
--- NOTE | 2023-03-08 00:52 | P.HPIM ---
History of Present Illness H&P Date: 03/07/23 Chief Complaint: Muscle spasms Patient is a 78-year-old female with a known history of arthritis presents to ER with complaints of bilateral lower recommended pain and muscle spasms especially in the left lower extremity. Patient states that her symptoms started after cortisone injection to her left knee on January 13, 2023. Patient was seen in the ER on February 02 and was prescribed Valium and currently also taking Flexeril at home. Patient was seen by her primary care physician and was prescribed gabapentin which did not improve her pain. Patient also states that she did have tingling sensation in her fifth finger bilaterally. Patient was recently seen at urgent care facility where she had lab tests including YULI which was positive and titer was 1:80. Rheumatoid factor was negative. Patient is supposed to follow with neurology and spine [facility] on March 30 but presented to ER due to worsening above symptoms. She is concerned that she might have MS. Patient states that she is unable to go to work due to pain and spasms. Patient is also taking Flexeril at home. Laboratory data showed WBC 11.2 hemoglobin 14.6 and platelets 272 TSH 1.66, CRP less than 0.5 and his creatinine kinase 109 and folate 31.3 Urinalysis is negative for infection. CT lumbar spine done in the ER showed L3 L2 small disc herniation with caudal migration resulting in mild central canal stenosis. Multilevel degenerative disc disease and facet arthropathy. Review of Systems Constitutional: Patient denies any fever or chills . no Generalized weakness. Abdomen: Patient denied any nausea or vomiting or abd. pain Cardiovascular: Patient denies any chest pain or short of breath no palpitations. Respiratory: patient denied any cough . no sputum production. No shortness of breath Neurologic: Patient denied any numbness or tingling headache. Bilateral lower and muscle spasms Musculoskeletal: Patient denies any complaints of joint swelling or deformity. Skin: Negative Psychiatric: Anxious Endocrine: No heat or cold intolerance. No recent weight gain. Genitourinary: No dysuria or hematuria. All other 14 point ROS negative except the above Past Medical History Past Medical History: No Reported History Additional Past Medical History / Comment(s): RT SHOULDER INJURY History of Any Multi-Drug Resistant Organisms: None Reported Past Surgical History: Orthopedic Surgery, Tubal Ligation Additional Past Surgical History / Comment(s): RIGHT SHOULDER SURG. Past Anesthesia/Blood Transfusion Reactions: No Reported Reaction Past Psychological History: No Psychological Hx Reported Smoking Status: Never smoker Past Alcohol Use History: Occasional Past Drug Use History: None Reported - Past Family History Mother Family Medical History: Unable to Obtain Additional Family Medical History / Comment(s): PT ADOPTED Medications and Allergies Home Medications Medication Instructions Recorded Confirmed Type diazePAM [Valium] 5 mg PO TID PRN 3 Days #9 tab 02/02/23 03/07/23 Rx Cyclobenzaprine HCl 10 mg PO TID PRN 03/07/23 03/07/23 History Allergies Allergy/AdvReac Type Severity Reaction Status Date / Time No Known Allergies Allergy Verified 03/07/23 13:14 Physical Exam Vitals: Vital Signs Temp Pulse Resp BP Pulse Ox 03/07/23 12:20 120 H 20 137/89 97 03/07/23 11:54 99.2 F 122 H 18 163/93 99 Intake and Output 03/07/23 03/07/23 03/07/23 06:59 14:59 22:59 Other: Weight 75.75 kg PHYSICAL EXAMINATION: Patient is lying in the bed comfortably, no acute distress, awake alert and oriented.. HEENT: Normocephalic. Neck is supple. Pupils reactive. Nostrils clear. Oral cavity is moist. Neck reveals no JVD, carotid bruits, or thyromegaly. CHEST EXAMINATION: Trachea is central. Symmetrical expansion. Lung rai clear to auscultation and percussion. CARDIAC: Normal S1, S2 with no gallops. No murmurs ABDOMEN: Soft. Bowel sounds present. Nontender. No organomegaly. No abdominal bruits. Extremities: reveal no edema. No clubbing or cyanosis Neurologically awake, alert, oriented x3 with well-coordinated movements. No focal deficits noted Skin: No rash or skin lesions. Psychiatric: Coperative. Nonsuicidal, Musculoskeletal: No joint swelling or deformity. Normal range of motion. Results CBC & Chem 7: 03/07/23 13:38 Labs: Abnormal Lab Results - Last 24 Hours (Table) 03/07/23 Range/Units 13:38 WBC 11.2 H (3.8-10.6) k/uL Neutrophils # 9.2 H (1.3-7.7) k/uL Thrombosis Risk Factor Assmnt - DVT/VTE Prophylaxis DVT/VTE Prophylaxis: Pharmacologic Prophylaxis ordered Assessment and Plan Assessment: Left lower extremity severe muscle spasms and bilateral lower extremity weakness. Neurological work-up pending. YULI positive with titer 1 :80 Anxiety DVT prophylaxis with heparin subcu Plan: Patient will be continued on pain management with tramadol and Flexeril was added for muscle spasms. Duplex ultrasound to rule out DVT. CT lumbar spine showed mild central canal stenosis. TSH B12 folate and CRP and Lyme titer was ordered. Neurology consulted for further evaluation. Continue to follow closely. Time with Patient: Greater than 30
--- NOTE | 2023-03-08 08:13 | US ---
EXAMINATION TYPE: US venous doppler duplex LE LT DATE OF EXAM: 03/08/2023 7:43 AM COMPARISON: NONE CLINICAL INDICATION: Female, 58 years old with history of pain; weakness in left leg, no swelling, no h/o dvt SIDE PERFORMED: Left TECHNIQUE: The lower extremity deep venous system is examined utilizing real time linear array sonog irene with graded compression, doppler sonography and color-flow sonography. VESSELS IMAGED: Common Femoral Vein Deep Femoral Vein Greater Saphenous Vein * Femoral Vein Popliteal Vein Small Saphenous Vein * Proximal Calf Veins (* superficial vessels) Grayscale, color doppler, spectral doppler imaging performed of the deep veins of the left lower extr emity. There is normal flow, compressibility, vascular waveforms. Left Leg: Negative for DVT IMPRESSION: No ultrasound evidence for deep venous thrombosis of the left lower extremity.
[2023-03-08 08:17] LABS: Rheumatoid Factor, Qnt <15 IU/mL (0-15)
--- NOTE | 2023-03-08 09:54 | P.CNNES ---
History of Present Illness Consult date: 03/08/23 Requesting physician: Jose Carlos Bedoya Reason for Consult: bilateral lower extremity weakness History of Present Illness: This is a 58-year-old woman who presented to the emergency department because of cramps and spasm of bilateral lower extremity since December 2022. Patient is accompanied with her daughter was at bedside. Patient states that the she had the left knee as a steroid injection in 01/13/2023 and a week later she has been having spasm and cramps over the left calf region and sometimes in the left ankle it's progressively getting worse and then the also recently as she is noticed in the right calf as well but the left calf is more significant than the right. She also feels there is a tingling sensation in the left calf region. She denies of any lower back pain. Denies of any neck pain. She has been hav ing cramps in the left bilateral lateral chest region just underneath her armpit that has been going on for the past 5 years but she feels its been improving and not as drastic. She denies of again any neck pain or back pain. Denies of any visual disturbance. Denies difficulty swallowing or getting her words out. Denies any bladder or bowel issues. Denies any falls. He denies any rash. She was evaluated by her primary care as well as the urgent care and she had some workup and a day was positive with 1:80. She also had a calcium level of 10.6. Her Lyme level was normal. Her hemoglobin the A1c was 6.1. Her parathyroid level was normal. She denies any history of multiple sclerosis in the past. She is adopted and all she knows is a her parents have history of epilepsy and diabetes mellitus requiring insulin. Some other workup during his hospital visit consisted of: ESR is 11. White blood cell is 11.2 TSH is 1.660. Folate is 31.30. Vitamin B-12 is 548. CRP is less than 0.5. CK level is 109. CT lumbar spine is reported as L2-L3 small disc herniation with caudal migration resulting in mild central canal stenosis. Multiple level degenerative disc disease and facet arthropathy and described above. I personally reviewed the CT and I do not feel there is any significant lumbar stenosis. Review of Systems Review of system: The 12 point system was reviewed and apparent positive and negative per HPI. Past Medical History Past Medical History: No Reported History Additional Past Medical History / Comment(s): RT SHOULDER INJURY History of Any Multi-Drug Resistant Organisms: None Reported Past Surgical History: Orthopedic Surgery, Tubal Ligation Additional Past Surgical History / Comment(s): RIGHT SHOULDER SURG. Past Anesthesia/Blood Transfusion Reactions: No Reported Reaction Past Psychological History: No Psychological Hx Reported Smoking Status: Never smoker Past Alcohol Use History: Occasional Past Drug Use History: None Reported - Past Family History Mother Family Medical History: Unable to Obtain Additional Family Medical History / Comment(s): PT ADOPTED Medications and Allergies Home Medications Medication Instructions Recorded Confirmed Type diazePAM [Valium] 5 mg PO TID PRN 3 Days #9 tab 02/02/23 03/07/23 Rx Cyclobenzaprine HCl 10 mg PO TID PRN 03/07/23 03/07/23 History Allergies Allergy/AdvReac Type Severity Reaction Status Date / Time No Known Allergies Allergy Verified 03/07/23 13:14 Physical Examination - Vital Signs Vital Signs: Vital Signs Temp Pulse Pulse Resp BP BP Pulse Ox 03/08/23 06:58 97.9 F 79 14 126/78 97 03/08/23 00:30 97.6 F 102 H 16 120/76 96 03/07/23 20:00 98.8 F 107 H 16 156/79 95 03/07/23 17:26 98.6 F 97 18 139/82 97 03/07/23 17:00 98.1 F 99 18 125/80 100 03/07/23 12:20 120 H 20 137/89 97 03/07/23 11:54 99.2 F 122 H 18 163/93 99 Intake and Output 03/07/23 03/08/23 03/08/23 22:59 06:59 14:59 Other: # Voids 1 2 GENERAL: The patient is lying in bed and is not in acute distress. NEUROLOGICAL: Higher mental function: The patient is awake, alert, oriented to self, place and time. Patient is following commands. No aphasia and no neglect. Cranial nerves: The pupils are round, equal and reactive to light and accommodation. Visual rai are full to confrontation throughout. Extraocular movement is intact no nystagmus is noted. Facial sensation is normal to touch throughout. The facial strength is normal throughout. Hearing is normal bilaterally to hand rub. Tongue is midline and moved [id number] without any d ifficulty. Appear to have fasciculation in tongue. No dysarthria is noted. Shoulder shrug is normal bilaterally. Motor: Gait is normal. The strength is 5 over 5 throughout. Normal tone and bulk. Has twitching/fasciulation of the left calf region. Cerebellum: Normal finger to nose bilaterally. Sensation: Sensation is normal to touch throughout. Reflexes (right/left): 2+. Plantars are downgoing bilaterally. Results - Laboratory Findings CBC and BMP: 03/07/23 13:38 Abnormal Lab Findings: Abnormal Labs 03/07/23 03/07/23 03/07/23 13:38 13:38 13:38 WBC 11.2 H Neutrophils # 9.2 H Folate 31.30 H Urine Ketones Trace H Assessment and Plan Assessment: This is a 58-year-old woman presents to the emergency because of cramps, twitching of the left calf more than the right calf since weak after getting her a steroid injection to left knee on 01/13/2023. She also has cramps over the bilateral upper lateral shoulder regions for past 5 years but is improving. On examination I felt her tongue suspicious for fasciculation as well. Muscle twitching with cramps over the bilateral calf left more than the right si nce December 2022 as well as cramps over the upper lateral chest for past 5 years. And on examination appears to have fasciulation: Unknown exact cause. Patient does not have any weakness, falls, any other neurological issues. YULI in January 2023 and it was 1:80: Does not appear significant Plan: I ordered MRI of the brain, cervical spine and lumbar spine within without to rule out any central cause to assess if there is any lesion at repeating to patient's symptoms. Recommend EMG with never conduction study of the lowers than the upper to rule out any cause leading to this. YULI and anti double-stranded DNA were ordered by the primary team is pending I ordered calcium, ionized calcium, magnesium, phosphorus. We'll defer the rest of the medical management to primary team. Recommend the patient to follow-up with the neuromuscular clinic within 1-2 weeks as an outpatient. Thank you for the consultation. The plan discussed with the patient, her daughter was at bedside and her nurse. Dr. Sullivan will start neurology service tomorrow A.M. Time with Patient: Greater than 30
[2023-03-08 13:46] LABS: ALT 35 U/L (8-44); AST 28 U/L (13-35); Albumin 5.2 d/dL (3.8-4.9); Albumin/Globulin Ratio 1.86 Ratio (1.60-3.17); Alkaline Phosphatase 87 U/L (41-126); BUN/Creat Ratio 22.71 Ratio (12.00-20.00); Blood Urea Nitrogen 15.9 mg/dL (9.0-27.0); Carbon Dioxide 22.6 mmol/L (21.6-31.8); Chloride 100 mmol/L (96-109); Globulin 2.8 d/dL (1.6-3.3); Glucose 140 mg/dL (70-110); Potassium 5.2 mmol/L (3.5-5.5); Sodium 138 mmol/L (135-145); Total Bilirubin 0.6 mg/dL (0.3-1.2)
[2023-03-08 13:48] LABS: Basophils % (A) 0 %; Eosinophils # (A) 0.1 k/uL (0-0.7); Eosinophils % (A) 0 %; HCT 45.6 % (34.0-46.0); HGB 15.1 gm/dL (11.4-16.0); Lymphocytes # (A) 1.7 k/uL (1.0-4.8); Lymphocytes % (A) 9 %; MCH 31.4 pg (25.0-35.0); MCV 95.1 fL (80.0-100.0); Mean Platelet Volume 7.1; Monocytes % (A) 5 %; Neutrophils # (A) 16.3 k/uL (1.3-7.7); Neutrophils % (A) 85 %; Platelet Count 292 k/uL (150-450); RDW 12.5 % (11.5-15.5); WBC 19.2 k/uL (3.8-10.6)
[2023-03-08 14:01] LABS: NRBC Per 100 WBC 0 X 10*3/uL (0.00-0.01)
[2023-03-08 14:13] LABS: Magnesium 2.2 mg/dL (1.6-2.3); Phosphorus 3.9 mg/dL (2.5-4.5)
[2023-03-08 14:14] LABS: Ionized Calcium 5.6 mg/dL (4.5-5.3)
--- NOTE | 2023-03-08 17:17 | XR ---
EXAMINATION TYPE: XR chest 1V DATE OF EXAM: 03/08/2023 5:10 PM COMPARISON: Chest radiographs from 12/26/2013 TECHNIQUE: XR chest 1V Frontal view of the chest. CLINICAL INDICATION:Female, 58 years old with history of high wbc; FINDINGS: Lungs/Pleura: There is no evidence of pleural effusion, focal consolidation, or pneumothorax. Pulmonary vascularity: Unremarkable. Heart/mediastinum: Cardiomediastinal silhouette is unremarkable. Musculoskeletal: No acute osseous pathology. IMPRESSION: No acute cardiopulmonary disease/process.
[2023-03-08 19:12] LABS: T4, Free (Free Thyroxine) 1.25 ng/dL (0.78-2.19)
[2023-03-08 19:26] LABS: Appearance,Urine Clear (Clear); Bilirubin,Urine Negative (Negative); Blood,Urine Negative (Negative); Color,Urine Light Yellow; Glucose,Urine (UA) Negative (Negative); Ketones,Urine Negative (Negative); Leukocyte Esterase,Urine Negative (Negative); Nitrite,Urine Negative (Negative); PH, Urine 5.5 (5.0-8.0); Protein,Urine Negative (Negative); Specific Gravity,Urine 1.009 (1.001-1.035); Urobilinogen,Urine <2.0 mg/dL (<2.0)
--- NOTE | 2023-03-08 23:45 | PN ---
PROGRESS NOTE SUBJECTIVE: The patient is up, walking in the room. Discussed with her neurologic trouble with severe leg cramping, fasciculations, elevated white count. We are going to get chest x-ray because of the high white count, rule out pneumonia, maybe check a urine. OBJECTIVE: VITAL SIGNS: Respiratory rate 16 to 18, temperature 98, blood pressure 120s/70s, O2 saturation is 97% on room air. CARDIOVASCULAR: S1, S2. LABORATORY DATA: White count Chest x-ray, urine culture, elevated ionized calcium. We are going to repeat parathyroid hormone and her thyroid appeared to be normal. Normal TSH, negative rheumatoid factor negative B12, folic acid. PROGNOSIS: Guarded. Follow up in the next 24 to 48 hours after MRI. MMODL / IJN: [id number] /
[2023-03-09] MEDS: HEPARIN SODIUM,PORCINE/PF 5,000 UNIT/0.5 ML SYRINGE SQ SCH ×4 (01:25→21:30)
[2023-03-09 06:47] LABS: ALT 31 U/L (4-34); AST 32 U/L (14-36); African American GFR (CKD) >90 (>60 ml/min/1.73 sqM); Albumin 4.4 g/dL (3.5-5.0); Albumin/Globulin Ratio 1.5; Alkaline Phosphatase 73 U/L (38-126); Anion Gap 8 mmol/L; Blood Urea Nitrogen 19 mg/dL (7-17); Calcium 10.2 mg/dL (8.4-10.2); Carbon Dioxide 28 mmol/L (22-30); Chloride 103 mmol/L (98-107); Glucose 87 mg/dL (74-99); Non-African American GFR(CKD) >90 (>60 ml/min/1.73 sqM); Potassium 4.3 mmol/L (3.5-5.1); Sodium 139 mmol/L (137-145); Total Bilirubin 0.6 mg/dL (0.2-1.3); Total Protein 7.4 g/dL (6.3-8.2)
[2023-03-09 06:52] LABS: Ionized Calcium 5.4 mg/dL (4.5-5.3)
[2023-03-09 09:32] LABS: Basophils # (A) 0.08 X 10*3/uL (0.00-0.10); Basophils % (A) 0.7 %; Eosinophils # (A) 0.08 X 10*3/uL (0.04-0.35); Eosinophils % (A) 0.7 %; HCT 43.3 % (37.2-46.3); HGB 14.3 d/dL (12.0-15.0); Lymphocytes # (A) 2.42 X 10*3/uL (0.90-5.00); Lymphocytes % (A) 22.4 %; MCH 31.1 pg (27.0-32.0); MCV 94.1 FL (80.0-97.0); Mean Platelet Volume 9.7 FL (9.5-12.2); Monocytes # (A) 0.74 X 10*3/uL (0.20-1.00); Monocytes % (A) 6.9 %; NRBC Per 100 WBC 0 X 10*3/uL (0.00-0.01); Neutrophils # (A) 7.43 X 10*3/uL (1.80-7.70); Neutrophils % (A) 68.9 %; Platelet Count 267 X 10*3/uL (140-440); RDW 12.8 % (11.5-14.5); WBC 10.79 X 10*3/uL (4.50-10.00)
--- NOTE | 2023-03-09 09:36 | P.CONS ---
History of Present Illness - Reason for Consult Consult date: 03/08/23 Leukocytosis Requesting physician: Ketan Bermeo - Chief Complaint Leg cramps x few days - History of Present Illness Patient is a 58-year-old female presenting to the ER for evaluation of cramps and spasms of bilateral lower extremity apparently has been going on since December 2022 and patient did mention symptoms started after she did receive the steroid injection left knee area on 01/13/2023 since then patient having spasm and cramps on the left cough region and sometimes her left ankle she mentions some swelling but no redness patient denies having any fever or chills no temperature has been recorded during this admission patient did have a white count of 11.2 admission with jumped to 19.2 today that has prompted this infectious disease consultation patient did have normal kidney function liver enzymes are normal CRP was normal urine has been negative patient did have a venous Doppler that was negative for DVT lumbar spine CT this shows L2-L3 small disc herniation multilevel degenerative disc disease, patient currently denies having any headache or URI symptoms no chest pain shortness of breath or cough. Denies any abdominal pain no nausea vomiting no diarrhea constipation no urinary symptoms Review of Systems Positive point and negatives has been mentioned in the HPI, complete review of systems was performed and all other systems are negative Past Medical History Past Medical History: No Reported History Additional Past Medical History / Comment(s): RT SHOULDER INJURY History of Any Multi-Drug Resistant Organisms: None Reported Past Surgical History: Orthopedic Surgery, Tubal Ligation Additional Past Surgical History / Comment(s): RIGHT SHOULDER SURG. Past Anesthesia/Blood Transfusion Reactions: No Reported Reaction Past Psychological History: No Psychological Hx Reported Smoking Status: Never smoker Past Alcohol Use History: Occasional Past Drug Use History: None Reported - Past Family History Mother Family Medical History: Unable to Obtain Additional Family Medical History / Comment(s): PT ADOPTED Medications and Allergies Home Medications Medication Instructions Recorded Confirmed Type diazePAM [Valium] 5 mg PO TID PRN 3 Days #9 tab 02/02/23 03/07/23 Rx Cyclobenzaprine HCl 10 mg PO TID PRN 03/07/23 03/07/23 History Allergies Allergy/AdvReac Type Severity Reaction Status Date / Time No Known Allergies Allergy Verified 03/07/23 13:14 Physical Exam Vitals: Vital Signs Temp Pulse Pulse Resp BP Pulse Ox 03/08/23 19:10 98.3 F 83 15 130/79 98 03/08/23 15:00 98 F 91 18 125/77 97 03/08/23 06:58 97.9 F 79 14 126/78 97 03/08/23 00:30 97.6 F 102 H 16 120/76 96 Intake and Output 03/08/23 03/08/23 03/08/23 06:59 14:59 22:59 Intake Total 120 Balance 120 Intake: Oral 120 Other: # Voids 2 3 GENERAL DESCRIPTION: Middle-aged female lying in bed, no distress. No tachypnea or accessory muscle of respiration use. HEENT: Shows Pallor , no scleral icterus. Oral mucous membrane is dry. No pharyngeal erythema or thrush NECK: Trachea central, no thyromegaly. LUNGS: Unlabored breathing. Clear to auscultation anteriorly. No wheeze or crackle. HEART: S1, S2, regular rate and rhythm. No loud murmur ABDOMEN: Soft, no tenderness , guarding or rigidity, no organomegaly EXTREMITIES: Left knee with no swelling no redness left leg with minimal warmth but no redness. SKIN: No rash, no masses palpable. NEUROLOGICAL: The patient is awake, alert, oriented x3, mood and affect normal. Results CBC & Chem 7: 03/09/23 05:48 03/09/23 05:48 Labs: Abnormal Lab Results - Last 24 Hours (Table) 03/07/23 03/08/23 03/08/23 Range/Units 13:38 13:23 13:23 WBC 19.2 H (3.8-10.6) k/uL Neutrophils # 16.3 H (1.3-7.7) k/uL Anion Gap 15.40 H (4.00-12.00) mmol/L BUN/Creatinine Ratio 22.71 H (12.00-20.00) Ratio Glucose 140 H (70-110) mg/dL Calcium 11.0 H (8.7-10.3) mg/dL Ionized Calcium Berta 5.6 H (4.5-5.3) mg/dL Albumin 5.2 H (3.8-4.9) d/dL Folate 31.30 H (4.40-31.00) ng/mL Assessment and Plan (1) Leukocytosis Status: Acute Code(s): D72.829 - ELEVATED WHITE BLOOD CELL COUNT, UNSPECIFIED SNOMED Code(s): 487739398 Plan: 1patient with elevated white count and this patient presented to the hospital bilateral especially left leg calf spasm and the patient also gives a history of steroid injection to the left knee area currently with no pain to the left knee which is not swollen or red minimal warmth to the left leg was noticed however no definitive cellulitis patient is currently not running any fever lungs are clear to auscultation abdominal soft on clinical examination no evidence of any infection clinically questionably reactive, as the patient did have a normal CRP and no fever 2-we will repeat his CBC check a blood culture and procalcitonin level. 3we will hold on adding antibiotic as clinical suspicion is low for bacterial infection this was explained to the patient and the family We will follow on clinical condition and cultures to further adjust medication if needed Thank you for this consultation we will follow the patient along with you Time with Patient: Greater than 30
[2023-03-09 11:07] LABS: DNA Double-Stranded Negative (Negative)
--- NOTE | 2023-03-09 14:21 | MR ---
EXAMINATION TYPE: MR brain/cspine wo/w DATE OF EXAM: 03/09/2023 1:25 PM CLINICAL INDICATION:Female, 58 years old with history of tongue fasciculations, leg cramps. Demyelina tion dz; Tongue fasciculations, leg cramps, demyelination COMPARISON: None TECHNIQUE: Multiplanar, multisequence images of the brain and brainstem is performed. Multi planar, multi sequence imaging was performed utilizing: T1-weighted, T2-weighted, and turbo inv ersion recovery imaging of the cervical spine. MR IV Contrast: 7 cc Gadavist FINDINGS: BRAIN: Diffusion weighted images demonstrate no evidence of a recent infarct or other diffusion abnormality. The ventricular system and cisternal spaces are normal in size and appearance. The brain volume is age appropriate. Midline structures demonstrate normal morphology. The craniocervical junction appe ars within normal limits. The dural venous sinuses appear patent. Choroidal fissure cyst present on t he left. Few scattered foci of white matter changes noted most pronounced on sagittal imaging involvi ng the left temporal lobe image 87 series 1901, right frontal lobe image 186, 190 and 192. Additional ly on coronal imaging series 1902 image 17 the right parietal region Blooming artifact within the right temporal lobe compatible with developmental venous anomaly. Post contrast images demonstrate no abnormal enhancement The bone marrow signal is within normal limits. Paranasal sinuses and mastoid air cells: Mild scattered paranasal sinus disease. Visualized orbits: Orbital contents are intact. C-SPINE: Alignment: The cervical vertebral bodies have preserved heights. Alignment is within normal limits gi jackelyn patient positioning. Bones: Bone signal is within normal limits. Multilevel degenerative disc disease is noted and most p ronounced at the C5-C6 vertebral levels osteophytes and disc space narrowing. No abnormal postcontras t enhancement. Cord: The spinal cord is unremarkable with regards to their signal intensity and morphology. No abnor mal postcontrast enhancement. Discs: Multilevel disc desiccation is present. C2-C3: A disc osteophyte complex is present which minimally narrows the ventral subarachnoid space. No neural foraminal stenosis. C3-C4: No significant disc pathology. The spinal canal is patent. Bilateral facet and uncovertebral joint arthropathy are present with mild bilateral neural foraminal stenosis. C4-C5: A disc osteophyte complex is present which minimally narrows the ventral subarachnoid space. Bilateral facet and uncovertebral joint arthropathy are present with mild bilateral neural foraminal stenosis. C5-C6: A disc osteophyte complex is present with mild spinal canal stenosis. Bilateral facet and unc overtebral joint arthropathy are present with moderate bilateral neural foraminal stenosis. C6-C7: No significant disc pathology. The spinal canal is patent. No neural foraminal stenosis. C7-T1: No significant disc pathology. The spinal canal is patent. No neural foraminal stenosis. Other: None. IMPRESSION: 1. No evidence for acute/active demyelination. Scattered minimal white matter change, correlate for chronic demyelination. Cervical Cord signal is maintained. 2. No evidence of intracranial mass, acute/subacute infarct, or abnormal enhancement. 3. Right temporal lobe developmental venous anomaly.
--- NOTE | 2023-03-09 18:53 | P.PN ---
Subjective Progress Note Date: 03/09/23 Patient was initially seen by Dr. Griffin Aiken. Please refer to his note for details. Patient is a 58-year-old female who has cramps and twitching of bilateral leg since end of January 2023. Patient denies fasciculations in the thighs, upper extremities or in the cranial region. It mainly involves the calves, left much worse than right. Not involves the thigh region. He shouldn't states that she feels some tingling in both legs like electric shocks. She denies any low back pain. She gets frequent cramps in the legs. Objective - Vital Signs Vital signs: Vital Signs Temp 98.2 F 03/09/23 13:25 Pulse 79 03/09/23 13:25 Resp 18 03/09/23 13:25 BP 121/75 03/09/23 13:25 Pulse Ox 99 03/09/23 13:25 FiO2 Intake & Output 03/08/23 03/09/23 03/09/23 18:59 06:59 18:59 Intake Total 120 50 Balance 120 50 Intake: Oral 120 50 Other: Voiding Method Toilet Toilet # Voids 3 2 3 - Exam Patient's mental status, speech and language functions are normal. Cranial nerves are normal. No tongue fasciculations. Muscle strength is normal in the arms and legs distally and proximally. Some fasciculations were noticed in the calves bilaterally. Deep tendon reflexes are (right/left) biceps 1+/1+, brachioradialis 1+/1+, knees 2+/2+3, ankles 1+/0. Plantars are flat bilaterally. Sensory to touch is equal. No ataxia. Patient can walk on her toes, heels and tandem. Gait appears normal. - Labs CBC & Chem 7: 03/09/23 05:48 03/09/23 05:48 Labs: Abnormal Lab Results - Last 24 Hours (Table) 03/09/23 03/09/23 Range/Units 05:48 05:48 WBC 10.79 H (4.50-10.00) X 10*3/uL BUN 19 H (7-17) mg/dL Ionized Calcium Berta 5.4 H (4.5-5.3) mg/dL Assessment and Plan Assessment: This is a 58-year-old woman presents to the emergency because of cramps, muscle fasciculations involving left calf more than the right calf since weak after getting her a steroid injection to left knee on 01/13/2023. She also has cramps over the bilateral upper lateral shoulder regions for past 5 years but is improving. No obvious evidence of tongue fasciculations. On examination, patient has somewhat brisk reflexes, but absent left ankle reflex, suggestive of possible neuropathic process. YULI in January 2023 and it was 1:80: Does not appear significant Plan: MRI of the brain revealed no evidence for acute/active demyelination. Scattered minimal white matter changes, correlate for chronic demyelination. Cervical cord signal is maintained. Cervical cord signal is maintained. No evidence of intracranial mass, acute/subacute infarct, or abnormal enhancement. Right temporal lobe developmental venous anomaly. I personally reviewed MRI, agree with the findings. Await MRI of the lumbar spine B12 548, folate 31.3. TFTs normal, PTH normal 28.9. Rheumatoid factor negative, 15. YULI, dsDNA negative. Thyroid peroxidase antibodies and Lyme titer negative. Total calcium 11.0, repeat is normal 10.2. Ionized calcium is 5.6 and then repeat 5.4/5.3. Internal medicine to address abnormal calcium. May consider endocrinology consultation. Phosphorous 3.9. Recommend the patient to follow-up with the neuromuscular clinic within 1-2 weeks for outpatient EMG and nerve conductions of bilateral lower and one upper extremity.
[2023-03-09] MEDS: FAMOTIDINE 20 MG TAB PO SCH (21:29)
--- NOTE | 2023-03-09 23:21 | PN ---
PROGRESS NOTE SUBJECTIVE: This 58-year-old white female comes in with numbness and tingling, muscle fasciculations. MRI of the head and neck showed no significant acute MM type things. She has moderate spondylopathy out of the cervical spine, possible workup with EMG as an outpatient. Wait for Neurology clearance solved. Autoimmune studies negative so far. OBJECTIVE: VITAL SIGNS: Temp 98.2, pulse 79, respiratory rate, blood pressure 121/79, and O2 99 room air. CARDIOVASCULAR: S1, S2. LUNGS: Clear. GI: Soft. White count is now down to 10. Sedimentation rate is negative. Scattered white spots in the brain, unclear etiology. UA is negative. Prognosis guarded. Wait for clearance from Neurology prior to being discharged. Wait for Griffin Aiken's recommendations, please see further orders. MMODL / IJN: [id number] /
[2023-03-10] MEDS: HEPARIN SODIUM,PORCINE/PF 5,000 UNIT/0.5 ML SYRINGE SQ SCH (09:54)
--- NOTE | 2023-03-10 14:12 | MR ---
EXAMINATION TYPE: MR lumbar spine wo con DATE OF EXAM: 03/10/2023 1:44 PM COMPARISON: CT lumbar spine 7023. CLINICAL INDICATION: Female, 58 years old with history of leg spams/cramps; PHH, BLE weakness, spasms . TECHNIQUE: Multi planar, multi sequence imaging was performed utilizing: T1-weighted, T2-weighted, a nd turbo inversion recovery imaging of the lumbar spine. IV Contrast: . None. FINDINGS: Alignment: The lumbar vertebral bodies have preserved heights. Grade 1 anterolisthesis of L4 and L5. Cord: The conus medullaris and the distal spinal cord appear unremarkable with regards to their signa l intensity and morphology. Bones/Discs: L2 vertebral body height T2/high T1 probable vertebral body hemangioma. Scattered disc s pace narrowing, disc desiccation and osteophyte formation present. Few scattered Schmorl's nodes are present. No abnormal bony edema on inversion recovery sequences. Intervertebral disc signal is maint ained. T12-L1: No evidence of significant spinal canal stenosis or neural foraminal stenosis. L1-L2: No evidence of significant spinal canal stenosis or neural foraminal stenosis. L2-L3: Disc bulge and facet joint arthropathy result in mild spinal canal and mild bilateral neural f oraminal stenosis. L3-L4: Disc bulge and facet joint arthropathy result in mild spinal canal and mild bilateral neural f oraminal stenosis. L4-L5: Disc bulge and facet joint arthropathy result in mild spinal canal and mild bilateral neural f oraminal stenosis. L5-S1: The disc is rounded posterior morphology without significant spinal canal stenosis. Facet join t arthropathy with mild neural foraminal stenosis. No significant spinal canal or neural foraminal stenosis in the remainder of the visualized levels. Other findings: Left renal high T2 signal cyst. IMPRESSION: 1. No definitive evidence of disc herniation or significant spinal canal stenosis or significant dee ral foraminal stenosis.. 2. Mild disc degeneration with associated osteoarthritic changes. 3. Grade 1 anterolisthesis of L4 and L5.
[2023-03-10 14:23] VITALS: BP 123/67; PULSE 85; RESP 15; TEMP 98.7
--- NOTE | 2023-03-10 16:19 | P.PN ---
Subjective Progress Note Date: 03/10/23 03/10/2023: Patient was seen for a follow-up. Denies any new symptoms. Continues to have paresthesias, which she describes as tingling, shocking, twitching sensation inside the calves, left more than right. It does not involve the thighs or the upper limbs. 03/09/2023: Patient was initially seen by Dr. Griffin Aiken. Please refer to his note for details. Patient is a 58-year-old female who has cramps and twitching of bilateral leg since end of January 2023. Patient denies fasciculations in the thighs, upper extremities or in the cranial region. It mainly involves the calves, left much worse than right. Not involves the thigh region. He shouldn't states that she feels some tingling in both legs like electric shocks. She denies any low back pain. She gets frequent cramps in the legs. Objective - Vital Signs Vital signs: Vital Signs Temp 98.7 F 03/10/23 14:22 Pulse 85 03/10/23 14:22 Resp 15 03/10/23 14:22 BP 123/67 03/10/23 14:22 Pulse Ox 99 03/10/23 14:22 FiO2 Intake & Output 03/09/23 03/10/23 03/10/23 18:59 06:59 18:59 Intake Total 50 236 Balance 50 236 Intake: Oral 50 236 Other: Voiding Method Toilet Toilet # Voids 3 1 3 # Bowel Movements 1 - Exam Patient's mental status, speech and language functions are normal. Cranial nerves are normal. No tongue fasciculations. Muscle strength is normal in the arms and legs distally and proximally. Some fasciculations were noticed in the calves bilaterally. No fasciculations noted in the upper limbs or the thigh region bilaterally. Deep tendon reflexes are (right/left) biceps 1+/1+, brachioradialis 1+/1+, knees 2+/2+3, ankles 1+/0. Plantars are flat bilaterally. Sensory to touch is equal. No ataxia. Patient can walk on her toes, heels and tandem. Gait appears normal. - Labs CBC & Chem 7: 03/09/23 05:48 03/09/23 05:48 Labs: Microbiology - Last 24 Hours (Table) 03/09/23 05:48 Blood Culture - Preliminary Blood Assessment and Plan Assessment: This is a 58-year-old woman presents to the emergency because of cramps, muscle fasciculations involving left calf more than the right calf since weak after getting her a steroid injection to left knee on 01/13/2023. She also has cramps over the bilateral upper lateral shoulder regions for past 5 years but is improving. No obvious evidence of tongue fasciculations. On examination, patient has somewhat brisk reflexes, but absent left ankle reflex, suggestive of possible neuropathic process. YULI in January 2023 and it was 1:80: Does not appear significant Plan: MRI of the brain revealed no evidence for acute/active demyelination. Scattered minimal white matter changes, correlate for chronic demyelination. Cervical c ord signal is maintained. Cervical cord signal is maintained. No evidence of intracranial mass, acute/subacute infarct, or abnormal enhancement. Right temporal lobe developmental venous anomaly. I personally reviewed MRI, agree with the findings. MRI of the lumbar spine revealed no definitive evidence of disc herniation or significant spinal canal stenosis or significant neural foraminal stenosis. Mild disc degeneration with associated osteoarthritic changes. Grade 1 anterolisthesis of L4 and L5. I personally reviewed MRI, agree with the findings. B12 548, folate 31.3. TFTs normal, PTH normal 28.9. Rheumatoid factor negative, 15. YULI, dsDNA negative. Thyroid peroxidase antibodies and Lyme titer negative. Total calcium 11.0, repeat is normal 10.2. Ionized calcium is 5.6 and then repeat 5.4/5.3. Internal medicine to address abnormal calcium. May consider endocrinology consultation. Phosphorous 3.9. Recommend the patient to follow-up with the neuromuscular clinic within 1-2 weeks for outpatient EMG and nerve conductions of bilateral lower and upper extremities. Neurologically clear for discharge.
--- NOTE | 2023-03-11 00:02 | DS ---
DISCHARGE SUMMARY A 58-year-old white female nothing significant was found on her MRI of her neck and lumbar spine and workup as an outpatient. The patient is medically stable at this time. Cleared by Neurology for discharge. She will have to have EMG as outpatient. Multiple vitamin levels, YULI, thyroid levels, etc. were all reviewed. Prognosis guarded. Diet as tolerated. Ambulate as tolerated. Please see further orders. MMODL / IJN: [id number] /
--- NOTE | 2023-03-17 14:43 | P.PN ---
Subjective Progress Note Date: 03/09/23 Principal diagnosis: Leukocytosis Patient is a 58-year-old female presenting to the ER for evaluation of cramps and spasms of bilateral lower extremity apparently has been going on since December 2022 and patient did mention symptoms started after she did receive the steroid injection left knee area on 01/13/2023, patient was noticed to have elevated white count from this infectious disease consultation. On today's evaluation that is 03/09/2023, the patient denies having any fever or any chills, still complaining of some cramps to the leg though decreased in frequency there is no swelling or redness to the leg no chest pain shortness of breath or cough no abdominal pain or diarrhea Objective - Vital Signs Vital signs: Vital Signs Temp 98.2 F 03/09/23 13:25 Pulse 79 03/09/23 13:25 Resp 18 03/09/23 13:25 BP 121/75 03/09/23 13:25 Pulse Ox 99 03/09/23 13:25 FiO2 Intake & Output 03/08/23 03/09/23 03/09/23 18:59 06:59 18:59 Intake Total 120 50 Balance 120 50 Intake: Oral 120 50 Other: Voiding Method Toilet Toilet # Voids 3 2 3 - Exam GENERAL DESCRIPTION: A middle-age female male lying in bed in no distress RESPIRATORY SYSTEM: Unlabored breathing , decreased breath sounds at bases HEART: S1 S2 regular rate and rhythm , ABDOMEN: Soft , no tenderness EXTREMITIES: No edema feet - Labs CBC & Chem 7: 03/09/23 05:48 03/09/23 05:48 Labs: Abnormal Lab Results - Last 24 Hours (Table) 03/09/23 03/09/23 Range/Units 05:48 05:48 WBC 10.79 H (4.50-10.00) X 10*3/uL BUN 19 H (7-17) mg/dL Ionized Calcium Berta 5.4 H (4.5-5.3) mg/dL Assessment and Plan (1) Leukocytosis Status: Acute Code(s): D72.829 - ELEVATED WHITE BLOOD CELL COUNT, UNSPECIFIED SNOMED Code(s): 544814832 Plan: 1patient with elevated white count and this patient presented to the hospital bilateral especially left leg calf spasm and the patient also gives a history of steroid injection to the left knee area currently with no pain to the left knee which is not swollen or red minimal warmth to the left leg was noticed however no definitive cellulitis patient is currently not running any fever lungs are clear to auscultation abdominal soft on clinical examination no evidence of any infection clinically questionably reactive, as the patient did have a normal CRP and no fever 2-patient white count was down to 10.9 today without any antibiotic therapy we will continue to monitor the patient closely off antibiotic while waiting for the cultures to finalize Time with Patient: Less than 30
--- NOTE | 2023-03-17 14:44 | P.PN ---
Subjective Progress Note Date: 03/10/23 Principal diagnosis: Leukocytosis Patient is a 58-year-old female presenting to the ER for evaluation of cramps and spasms of bilateral lower extremity apparently has been going on since December 2022 and patient did mention symptoms started after she did receive the steroid injection left knee area on 01/13/2023, patient was noticed to have elevated white count from this infectious disease consultation. On today's evaluation that is 03/10/2023, the patient remains to be afebrile, the patient cramps to the leg has decreased in frequency there is no swelling or redness to the leg no chest pain shortness of breath or cough no abdominal pain or diarrhea Objective - Vital Signs Vital signs: Vital Signs Temp 98.2 F 03/10/23 07:00 Pulse 80 03/10/23 07:00 Resp 14 03/10/23 07:00 BP 108/70 03/10/23 07:00 Pulse Ox 97 03/10/23 07:00 FiO2 Intake & Output 03/09/23 03/10/23 03/10/23 18:59 06:59 18:59 Intake Total 50 118 Balance 50 118 Intake: Oral 50 118 Other: Voiding Method Toilet Toilet # Voids 3 1 - Exam GENERAL DESCRIPTION: A middle-age female male lying in bed in no distress RESPIRATORY SYSTEM: Unlabored breathing , decreased breath sounds at bases HEART: S1 S2 regular rate and rhythm , ABDOMEN: Soft , no tenderness EXTREMITIES: No edema feet - Labs CBC & Chem 7: 03/09/23 05:48 03/09/23 05:48 Labs: Microbiology - Last 24 Hours (Table) 03/09/23 05:48 Blood Culture - Preliminary Blood Assessment and Plan (1) Leukocytosis Status: Acute Code(s): D72.829 - ELEVATED WHITE BLOOD CELL COUNT, UNSPECIFIED SNOMED Code(s): 898814836 Plan: 1patient with elevated white count and this patient presented to the hospital bilateral especially left leg calf spasm and the patient also gives a history of steroid injection to the left knee area currently with no pain to the left knee which is not swollen or red minimal warmth to the left leg was noticed however no definitive cellulitis patient is currently not running any fever lungs are clear to auscultation abdominal soft on clinical examination no evidence of any infection clinically questionably reactive, as the patient did have a normal CRP and no fever 2-patient white count was down to 10.9 yesterday no CBC was done today culture has been negative with no clinical focus for infection recommending no antibiotic on discharge Time with Patient: Less than 30
== END 2023-03-10 17:52 | disposition home or self-care (01) ==
LOC: EC 11:48 → 6NMEDSUR 13:19
PROVIDERS: ADMIT Family Medicine; ATTEND Family Medicine
DX: M62.838 Other muscle spasm (principal); R25.3 Fasciculation; D72.829 Elevated white blood cell count, unspecified; R20.0 Anesthesia of skin; R20.2 Paresthesia of skin; M79.604 Pain in right leg; M79.605 Pain in left leg; R76.0 Raised antibody titer; M48.061 Spinal stenosis, lumbar region without neurogenic claudication; M47.816 Spondylosis without myelopathy or radiculopathy, lumbar region; M48.8X2 Other specified spondylopathies, cervical region; M51.36 Other intervertebral disc degeneration, lumbar region; M19.90 Unspecified osteoarthritis, unspecified site; F41.9 Anxiety disorder, unspecified; Z87.828 Personal history of other (healed) physical injury and trauma; Z98.51 Tubal ligation status; Z98.890 Other specified postprocedural states; Z83.3 Family history of diabetes mellitus; Z82.0 Family history of epilepsy and other diseases of the nervous system
CPT/HCPCS: 96372 ×2; 96374; 96375; 99285; 85379; 84439; 84481; 80053 ×2; 85652; 84443; 82330 ×2; 82607; 82550; 82746; 83735; 84100; 85025 ×3; 86140; 86431; 81003 ×2; 87040; 86618; 86376; 86038; 86225; 83970; 84145; 71045; 93971; 72131; 70553; 72148; 72156; G0378 ×4; J2060; J1100; J1644 ×2; A9585

== ENCOUNTER → 2024-11-23 | Outpatient (CLI) | payer OTHER ==
--- NOTE | 2024-11-23 08:37 | BD ---
EXAMINATION TYPE: Axial Bone Density DATE OF EXAM: 11/23/2024 CLINICAL HISTORY: 59 years old Female. ICD-10 CODE: Z78.0 Postmenopausal , Additional History: Height: 62.5 in Weight: 177 lbs EXAM MEASUREMENTS: Bone mineral densitometry was performed using the [employer] System. Bone mineral density as measured about the Lumbar spine is: ----- L1-L4(G/cm2): 1.301 T Score Values are as follows: ----- L1: 1.0 ----- L2: 0.3 ----- L3: 1.1 ----- L4: 1.5 ----- L1-L4: 1.0 Z Score Values are as follows: ----- L1: 1.5 ----- L2: 0.8 ----- L3: 1.6 ----- L4: 2.0 ----- L1-L4: 1.5 Bone mineral density baseline Bone mineral density about the R hip (g/cm2): 1.014 Bone mineral density about the L hip (g/cm2): 1.007 T Score values are as follows: -----R Neck: 0.6 -----L Neck: 0.0 -----R Total: 0.1 -----L Total: 0.0 Z Score values are as follows: -----R Neck: 1.4 -----L Neck: 0.8 -----R Total: 0.5 -----L Total: 0.4 Bone mineral density baseline FRAX%s: The graph provided illustrates a 5.4% chance for a major osteoporotic fx and a 0.1% chance fo r the hips probability for fx in 10 years time. IMPRESSION: Normal (Values between +1 and -1 indicate normal bone mass). Consider repeating this study in 5 year s or sooner if there is some new clinical indication. NOTE: T-SCORE=SD OF THE YOUNG ADULT MEAN. [facility], , 11/23/2024 8:35 AM
--- NOTE | 2024-11-23 08:47 | MM ---
Reason for Exam: Screening (asymptomatic). Last mammogram was performed 1 year(s) and 10 month(s) ago. Patient History: Menarche at age 17. First Full-Term at age 23. Postmenopausal. Patient has history of breast feeding. Patient used Hormonal Contraceptives for 3 years. Risk Values: Karina 5 year model risk: 1.0%. NCI Lifetime model risk: 6.5%. Prior Study Comparison: 12/26/2013 Bilateral Screening Mammogram, [facility]. 06/18/2018 Bilateral Screening Mammogram, [facility]. 01/28/2023 Bilateral MG screening mammo w CAD, [facility]. Tissue Density: There are scattered areas of fibroglandular density. Findings: Analyzed By CAD. No suspicious grouped calcifications. Benign-appearing calcifications. There is a 5 mm nodule in the central aspect of the right breast. Recommend spot compression view. Benign-appearing calcifications.. Overall Assessment: Incomplete: need additional imaging evaluation, BI-RAD 0 Management: Diagnostic Mammogram of the right breast. . Patient should continue monthly self-breast exams. A clinical breast exam by your physician is recommended on an annual basis. This exam should not preclude additional follow-up of suspicious palpable abnormalities. Note on Karina scores and lifetime risk: 1. A Karina score greater than 3% is considered moderate risk. If this is the case, consider specialist referral to assess eligibility for a risk reducing agent. 2. If overall lifetime risk for the development of breast cancer is 20% or higher, the patient may qualify for future screening with alternating mammogram and breast MRI. [facility], , 11/23/2024 8:44 AM. Electronically signed and approved by: Ketan Scherer M.D. Radiologis
== END | disposition home or self-care (01) ==
LOC: RADMAMWWP 07:26
PROVIDERS: ATTEND Family Medicine
DX: Z12.31 Encounter for screening mammogram for malignant neoplasm of breast (principal); R92.323 Mammographic fibroglandular density, bilateral breasts; Z92.0 Personal history of contraception; Z78.0 Asymptomatic menopausal state
CPT/HCPCS: 77067; 77080

== ENCOUNTER → 2024-11-24 | Outpatient (CLI) | payer OTHER ==
--- NOTE | 2024-11-24 10:32 | MM ---
Reason for Exam: Additional evaluation requested from abnormal screening. Last screening mammogram was performed less than 1 month ago. Patient History: Menarche at age 17. First Full-Term at age 23. Postmenopausal. Patient has history of breast feeding. Patient used Hormonal Contraceptives for 3 years. Risk Values: Karina 5 year model risk: 1.0%. NCI Lifetime model risk: 6.5%. Tissue Density: Right: There are scattered areas of fibroglandular density. Findings: Analyzed By CAD. Calcifications are seen in the right breast. There is a new nodule measuring 4 mm persistent on compression views approximately 5 to 6 cm from the nipple line. Overall Assessment: Incomplete: need additional imaging evaluation, BI-RAD 0 Management: Diagnostic Breast Ultrasound of the right breast. . Results were given to the patient verbally at the time of exam. Patient should continue monthly self-breast exams. A clinical breast exam by your physician is recommended on an annual basis. This exam should not preclude additional follow-up of suspicious palpable abnormalities. Note on Karina scores and lifetime risk: 1. A Karina score greater than 3% is considered moderate risk. If this is the case, consider specialist referral to assess eligibility for a risk reducing agent. 2. If overall lifetime risk for the development of breast cancer is 20% or higher, the patient may qualify for future screening with alternating mammogram and breast MRI. [facility], , 11/24/2024 10:29 AM. Electronically signed and approved by: Ketan Scherer M.D. Radiologis
--- NOTE | 2024-11-24 10:54 | USB ---
Reason for Exam: Additional evaluation requested from abnormal screening. Patient History: Menarche at age 17. First Full-Term at age 23. Postmenopausal. Patient has history of breast feeding. Patient used Hormonal Contraceptives for 3 years. Risk Values: Karina 5 year model risk: 1.0%. NCI Lifetime model risk: 6.5%. Technique: Method: Targeted. Doppler: Color. Patient Position: Supine. Prior Study Comparison: 06/18/2018 Bilateral Screening Mammogram, [facility]. 01/28/2023 Bilateral MG screening mammo w CAD, [facility]. 11/23/2024 Bilateral MG screening mammo w CAD, [facility]. Findings: The whole breast of the right breast, the periareolar of the right breast, the axilla of the right breast and the retroareolar of the right breast were scanned. A targeted US of central aspect of the right breast extending to the 8:00 position, axilla and retro-areolar region were reviewed. There is a tiny 2 x 6 mm density within the right breast at the 8:00 position which too small to characterize but likely benign. Overall Assessment: Probably benign, BI-RAD 3 Management: Diagnostic Mammogram of the right breast in 6 months. A clinical breast exam by your physician is recommended on an annual basis and results should be correlated with mammographic findings. This exam should not preclude additional follow-up of suspicious palpable abnormalities. Results were given to the patient verbally at the time of exam. [facility], , 11/24/2024 10:51 AM. Electronically signed and approved by: Ketan Scherer M.D. Radiologis
== END | disposition home or self-care (01) ==
LOC: RADMAMWWP 10:12
PROVIDERS: ATTEND Family Medicine
DX: R92.8 Other abnormal and inconclusive findings on diagnostic imaging of breast (principal); R92.321 Mammographic fibroglandular density, right breast; R92.1 Mammographic calcification found on diagnostic imaging of breast; Z78.0 Asymptomatic menopausal state; Z92.0 Personal history of contraception
CPT/HCPCS: 77065; 76642; G0279; 77061